=== PATIENT | female | born 1945 | race Caucasian/White ===

== ENCOUNTER 2019-09-13 07:44 | Inpatient (IN) | payer MEDICARE ==
[2019-09-10 16:48] LABS: MICROSCOPIC NOT IND
[2019-09-10 16:49] LABS: INTERNATIONAL NORMALIZED RATIO 0.98 (0.93-1.1); PROTHROMBIN TIME 10.3 Seconds (9.6-11.5)
[2019-09-10 16:52] LABS: CULTURE INDICATED? NO
[2019-09-10 16:55] LABS: ALANINE AMINOTRANSFERASE 32 U/L (12-78); ALBUMIN 3.5 g/dL (3.4-5.0); ANION GAP 8 mmol/L (5-15); CALCIUM 9.1 mg/dL (8.5-10.1); CHLORIDE 95 mmol/L (98-107); CREATININE 1.14 mg/dL (0.55-1.02); MEAN CORPUSCULAR HEMOGLOBIN 31.3 pg (27.0-34.8); MEAN CORPUSCULAR VOLUME 94.6 fL (80-100); MEAN PLATELET VOLUME 8.5 fL (7.4-10.4); PLATELET COUNT 441 x10^3/uL (130-400); RED BLOOD COUNT 4.39 x10^6/uL (3.82-5.3); RED CELL DISTRIBUTION WIDTH 14.3 % (9.6-15.2)
[2019-09-10 16:58] LABS: ALKALINE PHOSPHATASE 121 U/L (45-117); BILIRUBIN,TOTAL 0.3 mg/dL (0.2-1.0); TOTAL PROTEIN 7.6 g/dL (6.4-8.2)
[2019-09-10 17:14] LABS: BASOPHILS # (AUTO) 0.03 x10^3/uL (0-0.1); BASOPHILS % (AUTO) 0 % (0-1); EOSINOPHILS # (AUTO) 0.29 x10^3/uL (0-0.4); EOSINOPHILS % (AUTO) 2 % (1-7); LYMPHOCYTES # (AUTO) 1.66 x10^3/uL (1-3.4); LYMPHOCYTES % (AUTO) 10 % (22-44); MD SCAN; MONOCYTES # (AUTO) 1.17 x10^3/uL (0.2-0.8); MONOCYTES % (AUTO) 7 % (2-9); NEUTROPHILS # (AUTO) 13.23 x10^3/uL (1.8-6.8); NEUTROPHILS % (AUTO) 81 % (42-75)
[~2019-09-13] VITALS: Ht 156.2 cm; Wt 62.3 kg
[~2019-09-13 07:44] MED LIST: ACET1TAB64 PO; DOCU-180 PO; HYDR12.517 PO; LEVO100T5 PO; MAGN100T3 PO; MULT1TAB60 PO; NEBI20TA2 PO; OLME40TA12 PO; ONDA4TAB7 PO; SENN17.25 PO; Simethicone PO; TRAM50TA2 PO; TURM500C4 PO
[2019-09-13] MEDS ORDERED: LACTATED RINGERS 1,000 ML IV SCH (08:45)
[2019-09-13 08:46] VITALS: BP 105/68
[2019-09-13] MEDS ORDERED: MIDAZOLAM 1 MG/ML, 2ML ONE (09:35)
[2019-09-13] MEDS ORDERED: FENTANYL PF 250 MCG/5ML ONE (09:35)
[2019-09-13] MEDS ORDERED: PHENYLEPHRINE 10 MG/ML ONE (10:36)
[2019-09-13] MEDS ORDERED: METRONIDAZOLE PMX 500MG/100ML 100 ML ONE (11:34)
[2019-09-13] MEDS ORDERED: PIPERACILLIN/TAZO/PMX 3.375GM 0 ML ONE (11:34)
[2019-09-13] MEDS ORDERED: PIPERACILLIN/TAZO/PMX 3.375GM 50 ML ONE (11:35)
[2019-09-13] MEDS ORDERED: HYDROmorphone/PF 5 MG, BUPIVACAINE/PF 0.5%, 30ML 62.5 ML in SODIUM CHLORIDE 0.9% 182.5 ML EPIDCONT SCH (12:37)
[2019-09-13] MEDS ORDERED: HEPARIN 1,000 UNITS/ML, 10ML ONE (12:49)
[2019-09-13] MEDS ORDERED: ACETAMINOPHEN 325 MG TABLET PO PRN (13:00)
[2019-09-13] MEDS ORDERED: OXYcodone 5 MG/5 ML ORAL.SOL UDC PO PRN (13:00)
[2019-09-13] MEDS ORDERED: hydrALAzine 20 MG/ML, 1ML IV PRN (13:00)
[2019-09-13] MEDS ORDERED: HYDROmorphone 2 MG/ML, 1ML IVPush PRN (13:00)
[2019-09-13] MEDS ORDERED: DIAZEPAM 5 MG/ML, 2ML IVPush PRN (13:00)
[2019-09-13] MEDS ORDERED: NALOXONE 0.4 MG/ML, 1ML IVPush PRN (13:00)
[2019-09-13] MEDS ORDERED: MEPERIDINE/PF 25MG/0.5ML IVPush PRN (13:00)
[2019-09-13] MEDS ORDERED: KETOROLAC 30 MG/1 ML IVPush PRN (13:00)
[2019-09-13] MEDS ORDERED: DIPH,PERTUSS(ACELL),TET VAC/PF NC IM-VACC ONE (13:00)
[2019-09-13] MEDS ORDERED: KETOROLAC 30 MG/1 ML IV PRN (13:00)
[2019-09-13] MEDS ORDERED: ALBUTEROL SULFATE 2.5 MG/3 ML NPPB PRN (13:00)
[2019-09-13] MEDS ORDERED: PROMETHAZINE 25 MG/ML, 1ML IV PRN (13:00)
[2019-09-13] MEDS ORDERED: METOCLOPRAMIDE 5 MG/ML, 2ML IVPush PRN (13:00)
[2019-09-13] MEDS ORDERED: FLU VACC QS2019-20 36MOS UP/PF 0.5 ML IM-VACC ONE (13:00)
[2019-09-13] MEDS ORDERED: FENTANYL PF 100 MCG/2ML EPIDPUSH PRN (13:00)
[2019-09-13] MEDS ORDERED: EPHEDRINE 50 MG/ML, 1ML IVPush PRN (13:00)
[2019-09-13] MEDS ORDERED: PNEUMOC 13-VALENT VACC, PED 0.5 ML NC IM-VACC ONE (13:00)
[2019-09-13] MEDS ORDERED: FENTANYL PF 100 MCG/2ML IV PRN (13:00)
[2019-09-13] MEDS ORDERED: HAEMOPH B POLY CONJ-TET TOX/PF 10 MCG/0.5 ML INJ IM-VACC ONE (13:00)
[2019-09-13] MEDS ORDERED: DO NOT GIVE XX SCH ×2 (13:00)
[2019-09-13] MEDS ORDERED: LABETALOL 5MG/ML, 20ML IV PRN (13:00)
[2019-09-13] MEDS ORDERED: NALBUPHINE 10 MG/ML, 1ML IVPush PRN (13:00)
[2019-09-13] MEDS ORDERED: CALCIUM GLUCONATE 4.6 MEQ/10 ML ONE (14:00)
[2019-09-13] MEDS ORDERED: ALBUMIN HUMAN 25% 0 ML ONE (14:06)
[2019-09-13] MEDS ORDERED: ALBUMIN HUMAN 5% 500 ML ONE ×2 (14:06→15:55)
[2019-09-13] MEDS ORDERED: [UNRECOGNIZED DRUG - MIXTURE] IM-VACC ONE (14:30)
[2019-09-13] MEDS ORDERED: SUCCINYLCHOLINE 20 MG/ML, 10ML ONE (15:41)
[2019-09-13] MEDS ORDERED: ROCURONIUM 10MG/ML,5ML ONE (15:41)
[2019-09-13] MEDS ORDERED: NEOSTIGMINE 1 MG/ML, 10ML ONE (15:41)
[2019-09-13] MEDS ORDERED: PROPOFOL 10 MG/ML, 20ML ONE (15:41)
[2019-09-13] MEDS ORDERED: DEXAMETHASONE 4 MG/ML, 1ML ONE (15:41)
[2019-09-13] MEDS ORDERED: ONDANSETRON 2MG/ML, 2ML ONE (15:41)
[2019-09-13] MEDS ORDERED: GLYCOPYRROLATE 0.2MG/1ML, 5ML ONE (15:41)
[2019-09-13] MEDS ORDERED: CEFAZOLIN 1,000 MG ONE (15:41)
[2019-09-13] MEDS ORDERED: SUGAMMADEX 200 MG/2 ML IVPush ONE (15:42)
[2019-09-13] MEDS ORDERED: PROPOFOL 50 ML ONE (15:44)
[2019-09-13] MEDS ORDERED: FENTANYL PF 100 MCG/2ML ONE ×2 (15:50→15:59)
[2019-09-13] MEDS: HYDROmorphone/PF 5 MG, BUPIVACAINE/PF 0.5%, 30ML 62.5 ML in SODIUM CHLORIDE 0.9% 187 ML EPIDCONT SCH (17:57)
[2019-09-13] MEDS: D5%-0.45NACL+KCL 20MEQ 1,000 ML IV SCH (18:17)
[2019-09-13] MEDS: METRONIDAZOLE PMX 500MG/100ML 100 ML IV SCH (18:17)
[2019-09-13] MEDS: PIPERACILLIN/TAZO/PMX 3.375GM 50 ML IV SCH (18:17)
[2019-09-13] MEDS: ALBUMIN HUMAN 5% 500 ML IV SCH (18:20)
[2019-09-13] MEDS: KETOROLAC 30 MG/1 ML IVPush SCH ×2 (18:20→23:20)
[2019-09-13 18:25] LABS: BASOPHILS # (AUTO) 0.01 x10^3/uL (0-0.1); BASOPHILS % (AUTO) 0 % (0-1); EOSINOPHILS # (AUTO) 0.02 x10^3/uL (0-0.4); EOSINOPHILS % (AUTO) 0 % (1-7); LYMPHOCYTES # (AUTO) 0.57 x10^3/uL (1-3.4); LYMPHOCYTES % (AUTO) 7 % (22-44); MD NO; MEAN CORPUSCULAR HEMOGLOBIN 32.3 pg (27.0-34.8); MEAN CORPUSCULAR HGB CONC 33.8 g/dL (32.4-35.8); MEAN CORPUSCULAR VOLUME 95.5 fL (80-100); MEAN PLATELET VOLUME 8.8 fL (7.4-10.4); MONOCYTES # (AUTO) 0.27 x10^3/uL (0.2-0.8); MONOCYTES % (AUTO) 3 % (2-9); NEUTROPHILS # (AUTO) 7.71 x10^3/uL (1.8-6.8); NEUTROPHILS % (AUTO) 90 % (42-75); PLATELET COUNT 263 x10^3/uL (130-400); RED BLOOD COUNT 3.89 x10^6/uL (3.82-5.3); RED CELL DISTRIBUTION WIDTH 13.3 % (9.6-15.2)
[2019-09-13 18:33] LABS: ALANINE AMINOTRANSFERASE 75 U/L (12-78); ALBUMIN 2.6 g/dL (3.4-5.0); ANION GAP 10 mmol/L (5-15); CALCIUM 6.5 mg/dL (8.5-10.1); CHLORIDE 111 mmol/L (98-107); CREATININE 1.01 mg/dL (0.55-1.02)
[2019-09-13 18:34] LABS: ALKALINE PHOSPHATASE 27 U/L (45-117); BILIRUBIN,TOTAL 2.5 mg/dL (0.2-1.0); TOTAL PROTEIN 3.4 g/dL (6.4-8.2)
[2019-09-13] MEDS: PHENYLEPHRINE 20 MG in SODIUM CHLORIDE 0.9% 248 ML IV PRN (19:45)
[2019-09-13] MEDS: SODIUM CHLORIDE FLUSH 10ML SYR IVF SCH (21:05)
[2019-09-13] MEDS ORDERED: SODIUM CHLORIDE 0.9%, 500ML IVBOLUS PRN (21:30)
[2019-09-14] MEDS: PIPERACILLIN/TAZO/PMX 3.375GM 50 ML IV SCH ×4 (00:48→19:59)
[2019-09-14] MEDS: METRONIDAZOLE PMX 500MG/100ML 100 ML IV SCH ×4 (01:22→20:25)
[2019-09-14] MEDS: PHENYLEPHRINE 20 MG in SODIUM CHLORIDE 0.9% 248 ML IV PRN ×5 (02:50→19:51)
[2019-09-14] MEDS: D5%-0.45NACL+KCL 20MEQ 1,000 ML IV SCH ×3 (03:30→20:25)
[2019-09-14] MEDS: ALBUMIN HUMAN 5% 500 ML IV SCH ×2 (03:30→13:42)
[2019-09-14 04:00] VITALS: BP 105/53
[2019-09-14] MEDS: KETOROLAC 30 MG/1 ML IVPush SCH ×4 (04:43→23:30)
[2019-09-14 05:07] LABS: MEAN CORPUSCULAR HEMOGLOBIN 31.7 pg (27.0-34.8); MEAN CORPUSCULAR HGB CONC 33.5 g/dL (32.4-35.8); MEAN CORPUSCULAR VOLUME 94.4 fL (80-100); MEAN PLATELET VOLUME 9.1 fL (7.4-10.4); PLATELET COUNT 308 x10^3/uL (130-400); RED BLOOD COUNT 3.44 x10^6/uL (3.82-5.3); RED CELL DISTRIBUTION WIDTH 13.7 % (9.6-15.2)
[2019-09-14 05:17] LABS: ALBUMIN 2.6 g/dL (3.4-5.0); ANION GAP 10 mmol/L (5-15); CALCIUM 6.6 mg/dL (8.5-10.1); CHLORIDE 105 mmol/L (98-107); CREATININE 1.58 mg/dL (0.55-1.02)
[2019-09-14 06:24] LABS: MD YES
[2019-09-14 06:28] LABS: BAND#(MANUAL) 4.68 x10^3/uL; BANDS%(MANUAL) 26 % (0-7); LYMPHS% (MANUAL) 10 % (22-44); METAMYELOCYTES# (MANUAL) 0.18 x10^3/uL (0-0); METAMYELOCYTES% (MANUAL) 1 % (0-1); MONOS#(MANUAL) 0.36 x10^3/uL (0.3-2.7); MONOS% (MANUAL) 2 % (2-9); SEG#(MANUAL) 10.98 x10^3/uL (1.8-6.8); SEGS% (MANUAL) 61 % (42-75)
[2019-09-14 06:29] LABS: <PLATELET ESTIMATE> ADEQUATE; <PLT MORPHOLOGY> NORMAL PLT MORPH
[2019-09-14 06:40] LABS: <RBC MORPHOLOGY> NORMAL
[2019-09-14] MEDS: SODIUM CHLORIDE FLUSH 10ML SYR IVF SCH ×2 (17:31→21:21)
[2019-09-14] MEDS: FAMOTIDINE 20 MG/2 ML IVPush SCH (21:21)
[2019-09-14] MEDS: HYDROmorphone/PF 5 MG, BUPIVACAINE/PF 0.5%, 30ML 62.5 ML in SODIUM CHLORIDE 0.9% 187 ML EPIDCONT SCH (21:42)
[2019-09-14] MEDS ORDERED: PHENYLEPHRINE 80 MG in SODIUM CHLORIDE 0.9% 242 ML IV PRN (22:52)
[2019-09-15] MEDS: PIPERACILLIN/TAZO/PMX 3.375GM 50 ML IV SCH ×2 (02:28→08:44)
[2019-09-15] MEDS: METRONIDAZOLE PMX 500MG/100ML 100 ML IV SCH ×2 (03:17→08:44)
[2019-09-15 04:00] VITALS: BP 102/42
[2019-09-15] MEDS: KETOROLAC 30 MG/1 ML IVPush SCH (05:25)
[2019-09-15 05:52] LABS: MEAN CORPUSCULAR HEMOGLOBIN 32.2 pg (27.0-34.8); MEAN CORPUSCULAR HGB CONC 33.3 g/dL (32.4-35.8); MEAN CORPUSCULAR VOLUME 96.5 fL (80-100); MEAN PLATELET VOLUME 9.4 fL (7.4-10.4); PLATELET COUNT 244 x10^3/uL (130-400); RED BLOOD COUNT 2.84 x10^6/uL (3.82-5.3)
[2019-09-15 06:04] LABS: CALCIUM 6.5 mg/dL (8.5-10.1); CHLORIDE 111 mmol/L (98-107)
[2019-09-15 06:08] LABS: ANION GAP 8 mmol/L (5-15); CREATININE 1.54 mg/dL (0.55-1.02)
[2019-09-15 06:14] LABS: MD YES
[2019-09-15 06:16] LABS: BAND#(MANUAL) 5.19 x10^3/uL; BANDS%(MANUAL) 22 % (0-7); LYMPH#(MANUAL) 0.71 x10^3/uL (1-3.4); LYMPHS% (MANUAL) 3 % (22-44); MONOS#(MANUAL) 0.24 x10^3/uL (0.3-2.7); MONOS% (MANUAL) 1 % (2-9); SEG#(MANUAL) 17.46 x10^3/uL (1.8-6.8); SEGS% (MANUAL) 74 % (42-75)
[2019-09-15 06:20] LABS: <RBC MORPHOLOGY> NORMAL
[2019-09-15 06:21] LABS: <PLATELET ESTIMATE> ADEQUATE; <PLT MORPHOLOGY> NORMAL PLT MORPH
[2019-09-15] MEDS ORDERED: TPN PER PHARMACY MC SCH (08:30)
[2019-09-15] MEDS: SODIUM CHLORIDE FLUSH 10ML SYR IVF SCH ×2 (08:44→21:02)
[2019-09-15] MEDS: FAMOTIDINE 20 MG/2 ML IVPush SCH (08:44)
[2019-09-15] MEDS: LEVOTHYROXINE 100 MCG INJ IVPush SCH (08:44)
[2019-09-15] MEDS: ALBUMIN HUMAN 25% 100 ML IV SCH ×2 (08:46→16:26)
[2019-09-15] MEDS ORDERED: VANCOMYCIN PER PHARMACY MC PRN (09:30)
[2019-09-15] MEDS ORDERED: MENING VAC A,C,Y,W-135 DIP/PF 0.5 ML AGE<55 IM-VACC ONE (10:00)
[2019-09-15] MEDS: MEROPENEM 1 GM in SODIUM CHLORIDE 0.9% 100 ML IV SCH ×2 (10:30→17:34)
[2019-09-15] MEDS ORDERED: CALCIUM GLUCONATE 18.4 MEQ in SODIUM CHLORIDE 0.9% 100 ML IV ONE (11:00)
[2019-09-15] MEDS: MICAFUNGIN 100 MG in SODIUM CHLORIDE 0.9% 100 ML IV SCH (11:22)
[2019-09-15] MEDS ORDERED: VANCOMYCIN 1,500 MG in SODIUM CHLORIDE 0.9% 250 ML IV ONE (12:00)
[2019-09-15] MEDS ORDERED: DEXTROSE 10% 500 ML IV PRN (17:00)
[2019-09-15] MEDS ORDERED: SMOF TPN IV SCH (17:00)
[2019-09-15] MEDS ORDERED: DEXTROSE 70% IV SCH (17:00)
[2019-09-15] MEDS ORDERED: AMINO ACID 10% IV SCH (17:00)
[2019-09-15] MEDS ORDERED: [UNRECOGNIZED DRUG - OTHER] IV SCH (17:00)
[2019-09-15] MEDS ORDERED: FAT EMUL IV SCH (17:00)
[2019-09-15] MEDS ORDERED: FILTER, DISP 1.2 MICRON FOR TPN/PVN IV PRN (17:00)
[2019-09-15] MEDS ORDERED: DEXTROSE 50%, 50ML SYRINGE IVPush PRN (17:00)
[2019-09-15] MEDS ORDERED: LACTATED RINGERS 1,000 ML IV SCH (18:30)
[2019-09-15] MEDS: LORazepam 2 MG/ML, 1ML IVPush PRN ×2 (18:36→22:53)
[2019-09-15] MEDS: LACTATED RINGERS 1,000 ML IV SCH (18:48)
[2019-09-15] MEDS ORDERED: FAMOTIDINE 20 MG/2 ML IVPush SCH (21:00)
[2019-09-15] MEDS: INSULIN REGULAR MEDIUM DOSE Q6H X 48HRS SQ-INSULIN SCH (21:04)
[2019-09-15] MEDS ORDERED: LORazepam 2 MG/ML, 1ML IVPush PRN (23:00)
[2019-09-16] MEDS: ALBUMIN HUMAN 25% 100 ML IV SCH (00:36)
[2019-09-16] MEDS: MEROPENEM 1 GM in SODIUM CHLORIDE 0.9% 100 ML IV SCH ×2 (02:03→16:29)
[2019-09-16] MEDS: INSULIN REGULAR MEDIUM DOSE Q6H X 48HRS SQ-INSULIN SCH ×3 (03:00→19:22)
[2019-09-16 03:18] LABS: MEAN CORPUSCULAR HEMOGLOBIN 31.6 pg (27.0-34.8); MEAN CORPUSCULAR HGB CONC 32.7 g/dL (32.4-35.8); MEAN CORPUSCULAR VOLUME 96.7 fL (80-100); PLATELET COUNT 240 x10^3/uL (130-400); RED BLOOD COUNT 2.61 x10^6/uL (3.82-5.3); RED CELL DISTRIBUTION WIDTH 14.2 % (9.6-15.2)
[2019-09-16 03:28] LABS: ALBUMIN 3.4 g/dL (3.4-5.0); ANION GAP 5 mmol/L (5-15); CALCIUM 7.8 mg/dL (8.5-10.1); CHLORIDE 116 mmol/L (98-107); TRIGLYCERIDES 48 mg/dL (50-200)
[2019-09-16 03:33] LABS: ALANINE AMINOTRANSFERASE 16 U/L (12-78); ALKALINE PHOSPHATASE 42 U/L (45-117); BILIRUBIN,TOTAL 0.5 mg/dL (0.2-1.0); CREATININE 1.56 mg/dL (0.55-1.02); PREALBUMIN 5.9 mg/dL (20.0-40.0); TOTAL PROTEIN 5.4 g/dL (6.4-8.2); VANCOMYCIN,RANDOM 15.2 mcg/mL
[2019-09-16 03:40] LABS: MD YES
[2019-09-16 03:41] LABS: BAND#(MANUAL) 0.48 x10^3/uL; BANDS%(MANUAL) 2 % (0-7); MONOS#(MANUAL) 0.24 x10^3/uL (0.3-2.7); MONOS% (MANUAL) 1 % (2-9); SEG#(MANUAL) 23.38 x10^3/uL (1.8-6.8); SEGS% (MANUAL) 97 % (42-75)
[2019-09-16 03:44] LABS: CRENATED 1+
[2019-09-16 03:45] LABS: <PLATELET ESTIMATE> ADEQUATE; <PLT MORPHOLOGY> NORMAL PLT MORPH
[2019-09-16] MEDS: LORazepam 2 MG/ML, 1ML IVPush PRN (03:45)
[2019-09-16 04:38] VITALS: BP 151/77
[2019-09-16] MEDS: LACTATED RINGERS 1,000 ML IV SCH (04:55)
[2019-09-16] MEDS ORDERED: LABETALOL 5MG/ML, 20ML ONE (06:38)
[2019-09-16] MEDS ORDERED: LABETALOL 5 MG/ML SYR. (IV ONLY) IVPush PRN (07:00)
[2019-09-16] MEDS ORDERED: VANCOMYCIN 1,500 MG in SODIUM CHLORIDE 0.9% 250 ML IV ONE (08:00)
[2019-09-16] MEDS: hydrALAzine 20 MG/ML, 1ML IV PRN ×3 (08:45→19:04)
[2019-09-16] MEDS: FUROSEMIDE 40 MG/4 ML IV SCH ×2 (08:46→20:29)
[2019-09-16] MEDS ORDERED: FLUMAZENIL 0.1 MG/1 ML, 5ML IVPush ONE ×3 (09:00→11:00)
[2019-09-16] MEDS ORDERED: MAGNESIUM SULFATE PMX 2GM/50ML 50 ML IVPB ONE (09:00)
[2019-09-16] MEDS ORDERED: FLUMAZENIL 0.1 MG/1 ML, 5ML ONE (09:00)
[2019-09-16] MEDS: LEVOTHYROXINE 100 MCG INJ IVPush SCH (10:23)
[2019-09-16] MEDS: SODIUM CHLORIDE FLUSH 10ML SYR IVF SCH ×2 (10:23→20:29)
[2019-09-16] MEDS: MICAFUNGIN 100 MG in SODIUM CHLORIDE 0.9% 100 ML IV SCH (12:00)
[2019-09-16] MEDS ORDERED: CALCIUM GLUCONATE 9.2 MEQ in SODIUM CHLORIDE 0.9% 100 ML IV ONE (14:00)
[2019-09-16] MEDS: MORPHINE SULFATE 4 MG/ML, 1ML IVPush PRN ×2 (16:01→18:04)
[2019-09-16] MEDS ORDERED: FILTER, DISP 1.2 MICRON FOR TPN/PVN IV PRN (17:00)
[2019-09-16] MEDS ORDERED: DEXTROSE 70% IV SCH (17:00)
[2019-09-16] MEDS ORDERED: SMOF TPN IV SCH (17:00)
[2019-09-16] MEDS ORDERED: [UNRECOGNIZED DRUG - OTHER] IV SCH (17:00)
[2019-09-16] MEDS ORDERED: AMINO ACID 10% IV SCH (17:00)
[2019-09-16] MEDS ORDERED: FAT EMUL IV SCH (17:00)
[2019-09-16] MEDS ORDERED: PROPOFOL 100 ML IV PRN (22:11)
[2019-09-16] MEDS ORDERED: PHARMACY MAY ADJ FOR RENAL FX MC SCH (22:30)
[2019-09-16] MEDS ORDERED: SENNA/DOCUSATE TABLET NG PRN (22:30)
[2019-09-16] MEDS ORDERED: SENNA 176 MG/5 ML ORAL SOL NG PRN (22:30)
[2019-09-16] MEDS ORDERED: DEXTROSE 50%, 50ML SYRINGE IVPush PRN (22:30)
[2019-09-16] MEDS ORDERED: GLUCAGON 1 MG IM PRN (22:30)
[2019-09-16] MEDS ORDERED: BISACODYL 10 MG SUPP PR PRN (22:30)
[2019-09-16] MEDS ORDERED: DEXTROSE 4 GM TAB.CHEW PO PRN (22:30)
[2019-09-16] MEDS ORDERED: LACTULOSE 20 GM/30 ML UDC NG PRN (22:30)
[2019-09-16] MEDS: ALBUTEROL SULFATE 2.5 MG/3 ML INLINE SCH (22:34)
[2019-09-17] MEDS ORDERED: FUROSEMIDE 40 MG/4 ML IV ONE (00:30)
[2019-09-17] MEDS: INSULIN REGULAR MEDIUM DOSE Q6H X 48HRS SQ-INSULIN SCH ×4 (01:09→18:41)
[2019-09-17] MEDS: ALBUTEROL SULFATE 2.5 MG/3 ML INLINE SCH ×6 (02:58→21:40)
[2019-09-17 04:00] VITALS: BP 113/61
[2019-09-17] MEDS: MEROPENEM 1 GM in SODIUM CHLORIDE 0.9% 100 ML IV SCH ×2 (04:06→15:38)
[2019-09-17] MEDS: DEXMEDETOMIDINE 200 MCG in SODIUM CHLORIDE 0.9% 48 ML IV PRN ×5 (04:09→21:48)
[2019-09-17 04:43] LABS: MEAN CORPUSCULAR HEMOGLOBIN 31.8 pg (27.0-34.8); MEAN CORPUSCULAR HGB CONC 32.9 g/dL (32.4-35.8); MEAN CORPUSCULAR VOLUME 96.7 fL (80-100); PLATELET COUNT 245 x10^3/uL (130-400); RED BLOOD COUNT 2.65 x10^6/uL (3.82-5.3); RED CELL DISTRIBUTION WIDTH 14.3 % (9.6-15.2)
[2019-09-17 04:56] LABS: ANION GAP 6 mmol/L (5-15); CALCIUM 8.9 mg/dL (8.5-10.1); CHLORIDE 110 mmol/L (98-107); CREATININE 1.32 mg/dL (0.55-1.02)
[2019-09-17 04:59] LABS: VANCOMYCIN,RANDOM 20.8 mcg/mL
[2019-09-17 05:42] LABS: MD YES
[2019-09-17 05:43] LABS: EOS#(MANUAL) 0.24 x10^3/uL (0.0-0.4); EOS% (MANUAL) 1 % (1-7)
[2019-09-17 05:44] LABS: BAND#(MANUAL) 0.48 x10^3/uL; BANDS%(MANUAL) 2 % (0-7); LYMPH#(MANUAL) 0.71 x10^3/uL (1-3.4); LYMPHS% (MANUAL) 3 % (22-44); MONOS#(MANUAL) 0.71 x10^3/uL (0.3-2.7); MONOS% (MANUAL) 3 % (2-9); SEG#(MANUAL) 21.66 x10^3/uL (1.8-6.8); SEGS% (MANUAL) 91 % (42-75)
[2019-09-17 05:45] LABS: <PLATELET ESTIMATE> ADEQUATE; <PLT MORPHOLOGY> NORMAL PLT MORPH; <RBC MORPHOLOGY> NORMAL
[2019-09-17] MEDS ORDERED: NOREPINEPHRINE 4 MG in SODIUM CHLORIDE 0.9% 246 ML IV PRN (08:00)
[2019-09-17] MEDS ORDERED: POTASSIUM PHOSPHATE IV ONE (08:30)
[2019-09-17] MEDS ORDERED: SODIUM CHLORIDE 0.9% IV ONE (08:30)
[2019-09-17] MEDS: VANCOMYCIN 1,500 MG in SODIUM CHLORIDE 0.9% 250 ML IV SCH (09:00)
[2019-09-17] MEDS ORDERED: FENTANYL PF 2,500 MCG in SODIUM CHLORIDE 0.9% 200 ML IV PRN (09:00)
[2019-09-17] MEDS ORDERED: FUROSEMIDE 40 MG/4 ML IV SCH (09:00)
[2019-09-17] MEDS: LEVOTHYROXINE 100 MCG INJ IVPush SCH (09:04)
[2019-09-17] MEDS: FUROSEMIDE 40 MG/4 ML IV SCH ×2 (09:04→20:30)
[2019-09-17] MEDS: SODIUM CHLORIDE FLUSH 10ML SYR IVF SCH ×2 (09:04→20:30)
[2019-09-17] MEDS: MICAFUNGIN 100 MG in SODIUM CHLORIDE 0.9% 100 ML IV SCH (11:00)
[2019-09-17] MEDS: FILTER, DISP 1.2 MICRON FOR TPN/PVN IV PRN (16:43)
[2019-09-17] MEDS ORDERED: [UNRECOGNIZED DRUG - OTHER] IV SCH (17:00)
[2019-09-17] MEDS ORDERED: FAT EMUL IV SCH (17:00)
[2019-09-17] MEDS ORDERED: SMOF TPN IV SCH (17:00)
[2019-09-17] MEDS ORDERED: AMINO ACID 10% IV SCH (17:00)
[2019-09-17] MEDS ORDERED: DEXTROSE 70% IV SCH (17:00)
[2019-09-18] MEDS: INSULIN REGULAR MEDIUM DOSE Q6H X 48HRS SQ-INSULIN SCH ×4 (01:00→19:16)
[2019-09-18] MEDS: ALBUTEROL SULFATE 2.5 MG/3 ML INLINE SCH ×6 (02:30→22:30)
[2019-09-18 04:00] VITALS: BP 126/61
[2019-09-18] MEDS: DEXMEDETOMIDINE 200 MCG in SODIUM CHLORIDE 0.9% 48 ML IV PRN (04:00)
[2019-09-18] MEDS: MEROPENEM 1 GM in SODIUM CHLORIDE 0.9% 100 ML IV SCH ×2 (04:01→15:37)
[2019-09-18 05:01] LABS: MEAN CORPUSCULAR HEMOGLOBIN 31.7 pg (27.0-34.8); MEAN CORPUSCULAR HGB CONC 32.8 g/dL (32.4-35.8); MEAN CORPUSCULAR VOLUME 96.5 fL (80-100); MEAN PLATELET VOLUME 10.1 fL (7.4-10.4); PLATELET COUNT 292 x10^3/uL (130-400); RED BLOOD COUNT 2.64 x10^6/uL (3.82-5.3); RED CELL DISTRIBUTION WIDTH 14.5 % (9.6-15.2)
[2019-09-18 05:05] LABS: ANION GAP 6 mmol/L (5-15); CALCIUM 8.3 mg/dL (8.5-10.1); CHLORIDE 109 mmol/L (98-107)
[2019-09-18 05:11] LABS: CREATININE 0.99 mg/dL (0.55-1.02); TROPONIN I 0.454 ng/mL (0.000-0.045)
[2019-09-18 05:18] LABS: MD YES
[2019-09-18 05:20] LABS: ANISOCYTOSIS 1+; EOS% (MANUAL) 5 % (1-7); LYMPH#(MANUAL) 1.25 x10^3/uL (1-3.4); LYMPHS% (MANUAL) 7 % (22-44); METAMYELOCYTES# (MANUAL) 0.18 x10^3/uL (0-0); METAMYELOCYTES% (MANUAL) 1 % (0-1); MONOS#(MANUAL) 1.97 x10^3/uL (0.3-2.7); MONOS% (MANUAL) 11 % (2-9); NRBC % (MANUAL) 1 % (0-1); SEGS% (MANUAL) 76 % (42-75)
[2019-09-18 05:22] LABS: <PLATELET ESTIMATE> ADEQUATE; LARGE PLATELETS 1+; POLYCHROMASIA 1+
[2019-09-18] MEDS: VANCOMYCIN 1,500 MG in SODIUM CHLORIDE 0.9% 250 ML IV SCH (08:41)
[2019-09-18] MEDS: LEVOTHYROXINE 100 MCG INJ IVPush SCH (08:41)
[2019-09-18] MEDS: SODIUM CHLORIDE FLUSH 10ML SYR IVF SCH ×2 (08:41→19:06)
[2019-09-18] MEDS: FUROSEMIDE 20 MG/2 ML IV SCH ×2 (08:43→19:16)
[2019-09-18] MEDS: DEXMEDETOMIDINE 1,000 MCG in SODIUM CHLORIDE 0.9% 240 ML IV PRN (10:38)
[2019-09-18] MEDS: MICAFUNGIN 100 MG in SODIUM CHLORIDE 0.9% 100 ML IV SCH (10:38)
[2019-09-18 11:30] LABS: TROPONIN I 0.402 ng/mL (0.000-0.045)
[2019-09-18] MEDS: FILTER, DISP 1.2 MICRON FOR TPN/PVN IV PRN (16:50)
[2019-09-18] MEDS ORDERED: SMOF TPN IV SCH (17:00)
[2019-09-18] MEDS ORDERED: DEXTROSE 70% IV SCH (17:00)
[2019-09-18] MEDS ORDERED: FAT EMUL IV SCH (17:00)
[2019-09-18] MEDS ORDERED: [UNRECOGNIZED DRUG - OTHER] IV SCH (17:00)
[2019-09-18] MEDS ORDERED: AMINO ACID 10% IV SCH (17:00)
[2019-09-18] MEDS: LIDOCAINE-MPF 1%, 2ML ENDO PRN (18:46)
[2019-09-18] MEDS: FENTANYL PF 2,500 MCG in SODIUM CHLORIDE 0.9% 200 ML IV PRN (19:50)
[2019-09-18] MEDS ORDERED: ALBUMIN HUMAN 25% 200 ML ONE (21:40)
[2019-09-18] MEDS ORDERED: ALBUMIN HUMAN 25% 100 ML IV ONE ×2 (22:00)
[2019-09-19] MEDS: ALBUTEROL SULFATE 2.5 MG/3 ML INLINE SCH ×6 (02:20→23:00)
[2019-09-19] MEDS: MEROPENEM 1 GM in SODIUM CHLORIDE 0.9% 100 ML IV SCH ×2 (04:06→15:54)
[2019-09-19 04:34] LABS: MEAN CORPUSCULAR HEMOGLOBIN 31.8 pg (27.0-34.8); MEAN CORPUSCULAR HGB CONC 32.8 g/dL (32.4-35.8); MEAN CORPUSCULAR VOLUME 97.1 fL (80-100); MEAN PLATELET VOLUME 9.9 fL (7.4-10.4); PLATELET COUNT 328 x10^3/uL (130-400); RED BLOOD COUNT 2.46 x10^6/uL (3.82-5.3); RED CELL DISTRIBUTION WIDTH 14.9 % (9.6-15.2)
[2019-09-19 04:46] LABS: MD YES
[2019-09-19 04:47] LABS: ANION GAP 5 mmol/L (5-15); CALCIUM 8.2 mg/dL (8.5-10.1); CHLORIDE 107 mmol/L (98-107); CREATININE 0.89 mg/dL (0.55-1.02); TRIGLYCERIDES 68 mg/dL (50-200)
[2019-09-19 04:48] LABS: ANISOCYTOSIS 1+; BAND#(MANUAL) 0.17 x10^3/uL; BANDS%(MANUAL) 1 % (0-7); EOS% (MANUAL) 3 % (1-7); LYMPH#(MANUAL) 1.51 x10^3/uL (1-3.4); LYMPHS% (MANUAL) 9 % (22-44); METAMYELOCYTES# (MANUAL) 0.17 x10^3/uL (0-0); METAMYELOCYTES% (MANUAL) 1 % (0-1); MONOS#(MANUAL) 1.51 x10^3/uL (0.3-2.7); MONOS% (MANUAL) 9 % (2-9); MYELOCYTES# (MANUAL) 0.67 x10^3/uL (0-0); MYELOCYTES% (MANUAL) 4 % (0-0); NRBC % (MANUAL) 1 % (0-1); POLYCHROMASIA 1+; SEG#(MANUAL) 12.26 x10^3/uL (1.8-6.8); SEGS% (MANUAL) 73 % (42-75)
[2019-09-19 04:49] LABS: <PLATELET ESTIMATE> ADEQUATE; LARGE PLATELETS 1+
[2019-09-19] MEDS: LIDOCAINE-MPF 1%, 2ML ENDO PRN (05:30)
[2019-09-19] MEDS: DEXMEDETOMIDINE 1,000 MCG in SODIUM CHLORIDE 0.9% 240 ML IV PRN ×2 (06:27→21:52)
[2019-09-19] MEDS: VANCOMYCIN 1,500 MG in SODIUM CHLORIDE 0.9% 250 ML IV SCH (08:05)
[2019-09-19] MEDS: LEVOTHYROXINE 100 MCG INJ IVPush SCH (08:05)
[2019-09-19] MEDS: FUROSEMIDE 20 MG/2 ML IV SCH ×2 (08:05→21:50)
[2019-09-19] MEDS: INSULIN REGULAR MEDIUM DOSE QDAY SQ-INSULIN SCH (08:06)
[2019-09-19] MEDS: SODIUM CHLORIDE FLUSH 10ML SYR IVF SCH ×2 (08:06→21:50)
[2019-09-19] MEDS ORDERED: FENTANYL PF 100 MCG/2ML ONE (09:33)
[2019-09-19] MEDS: hydrALAzine 20 MG/ML, 1ML IV PRN (11:08)
[2019-09-19] MEDS: MICAFUNGIN 100 MG in SODIUM CHLORIDE 0.9% 100 ML IV SCH (11:09)
[2019-09-19] MEDS ORDERED: ALBUMIN HUMAN 25% 100 ML IV ONE (12:00)
[2019-09-19] MEDS: FILTER, DISP 1.2 MICRON FOR TPN/PVN IV PRN (16:35)
[2019-09-19] MEDS ORDERED: AMINO ACID 10% IV SCH (17:00)
[2019-09-19] MEDS ORDERED: SMOF TPN IV SCH (17:00)
[2019-09-19] MEDS ORDERED: DEXTROSE 70% IV SCH (17:00)
[2019-09-19] MEDS ORDERED: FAT EMUL IV SCH (17:00)
[2019-09-19] MEDS ORDERED: [UNRECOGNIZED DRUG - OTHER] IV SCH (17:00)
[2019-09-19] MEDS: HALOPERIDOL 5 MG/ML IV PRN (19:18)
[2019-09-20] MEDS: ALBUTEROL SULFATE 2.5 MG/3 ML INLINE SCH ×6 (02:30→22:09)
[2019-09-20] MEDS: MEROPENEM 1 GM in SODIUM CHLORIDE 0.9% 100 ML IV SCH ×2 (04:41→16:16)
[2019-09-20 05:03] LABS: MEAN CORPUSCULAR HEMOGLOBIN 32.1 pg (27.0-34.8); MEAN CORPUSCULAR HGB CONC 33.4 g/dL (32.4-35.8); MEAN PLATELET VOLUME 9.3 fL (7.4-10.4); PLATELET COUNT 405 x10^3/uL (130-400); RED BLOOD COUNT 2.53 x10^6/uL (3.82-5.3); RED CELL DISTRIBUTION WIDTH 14.6 % (9.6-15.2)
[2019-09-20 05:08] LABS: ALANINE AMINOTRANSFERASE 20 U/L (12-78); ANION GAP 6 mmol/L (5-15); CALCIUM 8.8 mg/dL (8.5-10.1); CHLORIDE 107 mmol/L (98-107); CREATININE 0.99 mg/dL (0.55-1.02)
[2019-09-20 05:12] LABS: ALKALINE PHOSPHATASE 91 U/L (45-117); BILIRUBIN,TOTAL 0.8 mg/dL (0.2-1.0); PREALBUMIN 14.2 mg/dL (20.0-40.0); TOTAL PROTEIN 5.8 g/dL (6.4-8.2)
[2019-09-20 05:45] LABS: MD YES
[2019-09-20 05:46] LABS: BAND#(MANUAL) 0.37 x10^3/uL; BANDS%(MANUAL) 2 % (0-7); LYMPHS% (MANUAL) 6 % (22-44); METAMYELOCYTES# (MANUAL) 0.37 x10^3/uL (0-0); METAMYELOCYTES% (MANUAL) 2 % (0-1); NRBC % (MANUAL) 1 % (0-1)
[2019-09-20 05:47] LABS: EOS#(MANUAL) 0.37 x10^3/uL (0.0-0.4); EOS% (MANUAL) 2 % (1-7); MONOS#(MANUAL) 2.38 x10^3/uL (0.3-2.7); MONOS% (MANUAL) 13 % (2-9); SEG#(MANUAL) 13.73 x10^3/uL (1.8-6.8); SEGS% (MANUAL) 75 % (42-75)
[2019-09-20 05:48] LABS: <PLATELET ESTIMATE> ADEQUATE; ANISOCYTOSIS 1+; LARGE PLATELETS 1+; POLYCHROMASIA 1+
[2019-09-20] MEDS: FENTANYL PF 2,500 MCG in SODIUM CHLORIDE 0.9% 200 ML IV PRN (06:02)
[2019-09-20] MEDS: VANCOMYCIN 1,500 MG in SODIUM CHLORIDE 0.9% 250 ML IV SCH (08:03)
[2019-09-20] MEDS: DEXMEDETOMIDINE 1,000 MCG in SODIUM CHLORIDE 0.9% 240 ML IV PRN ×2 (08:04→17:36)
[2019-09-20] MEDS: SODIUM CHLORIDE FLUSH 10ML SYR IVF SCH ×2 (08:37→21:27)
[2019-09-20] MEDS: LORazepam 2 MG/ML, 1ML IV PRN ×2 (08:37→17:36)
[2019-09-20] MEDS: FUROSEMIDE 20 MG/2 ML IV SCH ×2 (10:10→21:27)
[2019-09-20] MEDS: LEVOTHYROXINE 100 MCG INJ IVPush SCH (10:11)
[2019-09-20] MEDS: INSULIN REGULAR MEDIUM DOSE QDAY SQ-INSULIN SCH (10:13)
[2019-09-20] MEDS: MICAFUNGIN 100 MG in SODIUM CHLORIDE 0.9% 100 ML IV SCH (11:01)
[2019-09-20] MEDS ORDERED: AMINO ACID 10% IV SCH (17:00)
[2019-09-20] MEDS ORDERED: FAT EMUL IV SCH (17:00)
[2019-09-20] MEDS ORDERED: [UNRECOGNIZED DRUG - OTHER] IV SCH (17:00)
[2019-09-20] MEDS ORDERED: SMOF TPN IV SCH (17:00)
[2019-09-20] MEDS ORDERED: DEXTROSE 70% IV SCH (17:00)
[2019-09-21] MEDS: LORazepam 2 MG/ML, 1ML IV PRN ×3 (01:36→22:50)
[2019-09-21] MEDS: ALBUTEROL SULFATE 2.5 MG/3 ML INLINE SCH ×2 (02:09→07:20)
[2019-09-21 04:21] LABS: MEAN CORPUSCULAR HEMOGLOBIN 31.6 pg (27.0-34.8); MEAN CORPUSCULAR HGB CONC 32.9 g/dL (32.4-35.8); MEAN CORPUSCULAR VOLUME 96.1 fL (80-100); MEAN PLATELET VOLUME 9.5 fL (7.4-10.4); PLATELET COUNT 475 x10^3/uL (130-400); RED BLOOD COUNT 2.53 x10^6/uL (3.82-5.3); RED CELL DISTRIBUTION WIDTH 14.5 % (9.6-15.2)
[2019-09-21 04:28] LABS: ANION GAP 7 mmol/L (5-15); CALCIUM 8.8 mg/dL (8.5-10.1); CHLORIDE 105 mmol/L (98-107); CREATININE 0.92 mg/dL (0.55-1.02)
[2019-09-21] MEDS: MEROPENEM 1 GM in SODIUM CHLORIDE 0.9% 100 ML IV SCH ×2 (04:37→16:13)
[2019-09-21] MEDS: DEXMEDETOMIDINE 1,000 MCG in SODIUM CHLORIDE 0.9% 240 ML IV PRN ×2 (05:21→19:08)
[2019-09-21 05:34] LABS: MD YES
[2019-09-21 05:36] LABS: ANISOCYTOSIS 1+; BAND#(MANUAL) 0.19 x10^3/uL; BANDS%(MANUAL) 1 % (0-7); EOS#(MANUAL) 0.19 x10^3/uL (0.0-0.4); EOS% (MANUAL) 1 % (1-7); LYMPH#(MANUAL) 1.16 x10^3/uL (1-3.4); LYMPHS% (MANUAL) 6 % (22-44); MONOS#(MANUAL) 0.97 x10^3/uL (0.3-2.7); MONOS% (MANUAL) 5 % (2-9); MYELOCYTES# (MANUAL) 0.19 x10^3/uL (0-0); MYELOCYTES% (MANUAL) 1 % (0-0); NRBC % (MANUAL) 3 % (0-1); POLYCHROMASIA 1+; SEG#(MANUAL) 16.68 x10^3/uL (1.8-6.8); SEGS% (MANUAL) 86 % (42-75)
[2019-09-21 05:37] LABS: <PLATELET ESTIMATE> INCREASED; LARGE PLATELETS 1+
[2019-09-21] MEDS: INSULIN REGULAR MEDIUM DOSE QDAY SQ-INSULIN SCH (07:00)
[2019-09-21] MEDS: SODIUM CHLORIDE FLUSH 10ML SYR IVF SCH ×2 (08:22→21:33)
[2019-09-21] MEDS: FUROSEMIDE 20 MG/2 ML IV SCH ×2 (08:22→20:47)
[2019-09-21] MEDS: LEVOTHYROXINE 100 MCG INJ IVPush SCH (08:22)
[2019-09-21] MEDS: MICAFUNGIN 100 MG in SODIUM CHLORIDE 0.9% 100 ML IV SCH (11:14)
[2019-09-21] MEDS: MORPHINE SULFATE 4 MG/ML, 1ML IVPush PRN ×2 (12:03→19:34)
[2019-09-21] MEDS: HALOPERIDOL 5 MG/ML IV PRN (13:15)
[2019-09-21] MEDS: FENTANYL PF 100 MCG/2ML IVPush PRN ×2 (13:40→15:44)
[2019-09-21] MEDS: FILTER, DISP 1.2 MICRON FOR TPN/PVN IV PRN (16:15)
[2019-09-21] MEDS ORDERED: ALBUTEROL/IPRATROPIUM 2.5MG/0.5MG, 3 ML NPPB PRN (16:30)
[2019-09-21] MEDS ORDERED: FAT EMUL IV SCH (17:00)
[2019-09-21] MEDS ORDERED: DEXTROSE 70% IV SCH (17:00)
[2019-09-21] MEDS ORDERED: AMINO ACID 10% IV SCH (17:00)
[2019-09-21] MEDS ORDERED: [UNRECOGNIZED DRUG - OTHER] IV SCH (17:00)
[2019-09-21] MEDS ORDERED: SMOF TPN IV SCH (17:00)
[2019-09-21] MEDS: KETOROLAC 30 MG/1 ML IVPush SCH (20:47)
[2019-09-21] MEDS: ENOXAPARIN 40 MG/0.4 ML SQ SCH (20:47)
[2019-09-22] MEDS: MORPHINE SULFATE 4 MG/ML, 1ML IVPush PRN ×3 (00:23→21:20)
[2019-09-22] MEDS: KETOROLAC 30 MG/1 ML IVPush SCH ×4 (02:04→20:22)
[2019-09-22] MEDS: hydrALAzine 20 MG/ML, 1ML IV PRN ×3 (02:04→14:45)
[2019-09-22] MEDS: LORazepam 2 MG/ML, 1ML IV PRN ×2 (02:42→20:22)
[2019-09-22] MEDS: MEROPENEM 1 GM in SODIUM CHLORIDE 0.9% 100 ML IV SCH ×2 (04:06→16:39)
[2019-09-22 04:30] LABS: MEAN CORPUSCULAR HGB CONC 34.1 g/dL (32.4-35.8); MEAN CORPUSCULAR VOLUME 93.8 fL (80-100); MEAN PLATELET VOLUME 9.4 fL (7.4-10.4); PLATELET COUNT 542 x10^3/uL (130-400); RED BLOOD COUNT 2.71 x10^6/uL (3.82-5.3); RED CELL DISTRIBUTION WIDTH 14.3 % (9.6-15.2)
[2019-09-22 04:34] LABS: ANION GAP 7 mmol/L (5-15); CALCIUM 9.2 mg/dL (8.5-10.1); CHLORIDE 107 mmol/L (98-107); CREATININE 0.92 mg/dL (0.55-1.02); TRIGLYCERIDES 124 mg/dL (50-200)
[2019-09-22 04:37] LABS: VANCOMYCIN,RANDOM 14.8 mcg/mL
[2019-09-22 05:09] LABS: MD YES
[2019-09-22 05:11] LABS: BASOS#(MANUAL) 0.25 x10^3/uL (0-0.1); BASOS% (MANUAL) 1 % (0-1); EOS% (MANUAL) 2 % (1-7); LYMPHS% (MANUAL) 6 % (22-44); MONOS% (MANUAL) 10 % (2-9); SEG#(MANUAL) 20.25 x10^3/uL (1.8-6.8); SEGS% (MANUAL) 81 % (42-75)
[2019-09-22 05:12] LABS: <PLATELET ESTIMATE> INCREASED; ANISOCYTOSIS 1+; HYPOCHROMIA 1+; LARGE PLATELETS 1+
[2019-09-22] MEDS: INSULIN REGULAR MEDIUM DOSE QDAY SQ-INSULIN SCH (07:00)
[2019-09-22 08:20] LABS: MICROSCOPIC INDICATED
[2019-09-22 08:37] LABS: CULTURE INDICATED? YES
[2019-09-22] MEDS: FUROSEMIDE 20 MG/2 ML IV SCH ×2 (09:02→20:21)
[2019-09-22] MEDS: SODIUM CHLORIDE FLUSH 10ML SYR IVF SCH ×2 (09:05→20:22)
[2019-09-22] MEDS: LEVOTHYROXINE 100 MCG INJ IVPush SCH (09:05)
[2019-09-22] MEDS: VANCOMYCIN 1,500 MG in SODIUM CHLORIDE 0.9% 250 ML IV SCH (10:12)
[2019-09-22] MEDS: MICAFUNGIN 100 MG in SODIUM CHLORIDE 0.9% 100 ML IV SCH (12:11)
[2019-09-22] MEDS ORDERED: PHARMACOKINETIC MONITORING MC PRN (13:00)
[2019-09-22] MEDS: FILTER, DISP 1.2 MICRON FOR TPN/PVN IV PRN (16:42)
[2019-09-22] MEDS ORDERED: FAT EMUL IV SCH (17:00)
[2019-09-22] MEDS ORDERED: DEXTROSE 70% IV SCH (17:00)
[2019-09-22] MEDS ORDERED: AMINO ACID 10% IV SCH (17:00)
[2019-09-22] MEDS ORDERED: SMOF TPN IV SCH (17:00)
[2019-09-22] MEDS ORDERED: [UNRECOGNIZED DRUG - OTHER] IV SCH (17:00)
[2019-09-22] MEDS: METOPROLOL TARTRATE 25 MG TABLET PO SCH (20:00)
[2019-09-22] MEDS: ENOXAPARIN 40 MG/0.4 ML SQ SCH (20:21)
[2019-09-23] VITALS (9 sets, daily range): BP systolic 147–183; BP diastolic 68–92
[2019-09-23] MEDS: METOPROLOL TARTRATE 25 MG TABLET PO SCH ×3 (00:54→22:35)
[2019-09-23] MEDS: KETOROLAC 30 MG/1 ML IVPush SCH (02:24)
[2019-09-23] MEDS: MEROPENEM 1 GM in SODIUM CHLORIDE 0.9% 100 ML IV SCH ×2 (04:18→16:36)
[2019-09-23 04:53] LABS: CHLORIDE 110 mmol/L (98-107)
[2019-09-23 04:56] LABS: ANION GAP 5 mmol/L (5-15); CREATININE 0.94 mg/dL (0.55-1.02)
[2019-09-23 05:12] LABS: MEAN CORPUSCULAR HEMOGLOBIN 30.5 pg (27.0-34.8); MEAN CORPUSCULAR HGB CONC 32.3 g/dL (32.4-35.8); MEAN CORPUSCULAR VOLUME 94.6 fL (80-100); MEAN PLATELET VOLUME 9.4 fL (7.4-10.4); PLATELET COUNT 597 x10^3/uL (130-400); RED BLOOD COUNT 2.38 x10^6/uL (3.82-5.3); RED CELL DISTRIBUTION WIDTH 14.5 % (9.6-15.2)
[2019-09-23 05:41] LABS: MD YES
[2019-09-23 05:42] LABS: EOS#(MANUAL) 0.72 x10^3/uL (0.0-0.4); EOS% (MANUAL) 3 % (1-7); LYMPH#(MANUAL) 1.21 x10^3/uL (1-3.4); LYMPHS% (MANUAL) 5 % (22-44); METAMYELOCYTES# (MANUAL) 0.24 x10^3/uL (0-0); METAMYELOCYTES% (MANUAL) 1 % (0-1); MONOS#(MANUAL) 1.21 x10^3/uL (0.3-2.7); MONOS% (MANUAL) 5 % (2-9); SEG#(MANUAL) 20.73 x10^3/uL (1.8-6.8); SEGS% (MANUAL) 86 % (42-75)
[2019-09-23 05:43] LABS: ANISOCYTOSIS 1+; POLYCHROMASIA 1+
[2019-09-23 05:44] LABS: <PLATELET ESTIMATE> INCREASED; HYPOCHROMIA 1+; LARGE PLATELETS 1+
[2019-09-23] MEDS: INSULIN REGULAR MEDIUM DOSE QDAY SQ-INSULIN SCH (07:00)
[2019-09-23 07:02] LABS: MEAN CORPUSCULAR HEMOGLOBIN 30.5 pg (27.0-34.8); MEAN CORPUSCULAR HGB CONC 32.3 g/dL (32.4-35.8); MEAN CORPUSCULAR VOLUME 94.5 fL (80-100); MEAN PLATELET VOLUME 9.2 fL (7.4-10.4); PLATELET COUNT 607 x10^3/uL (130-400); RED BLOOD COUNT 2.55 x10^6/uL (3.82-5.3); RED CELL DISTRIBUTION WIDTH 14.8 % (9.6-15.2)
[2019-09-23 07:22] LABS: MD YES
[2019-09-23 07:24] LABS: <PLATELET ESTIMATE> INCREASED; ANISOCYTOSIS 1+; EOS#(MANUAL) 0.49 x10^3/uL (0.0-0.4); EOS% (MANUAL) 2 % (1-7); HYPOCHROMIA 1+; LARGE PLATELETS 1+; LYMPH#(MANUAL) 0.74 x10^3/uL (1-3.4); LYMPHS% (MANUAL) 3 % (22-44); MONOS#(MANUAL) 1.24 x10^3/uL (0.3-2.7); MONOS% (MANUAL) 5 % (2-9); POLYCHROMASIA 1+; SEG#(MANUAL) 22.23 x10^3/uL (1.8-6.8); SEGS% (MANUAL) 90 % (42-75)
[2019-09-23] MEDS: SODIUM CHLORIDE FLUSH 10ML SYR IVF SCH ×2 (08:14→22:32)
[2019-09-23] MEDS: LEVOTHYROXINE 100 MCG INJ IVPush SCH (08:15)
[2019-09-23] MEDS: LORazepam 2 MG/ML, 1ML IV PRN ×2 (08:15→14:53)
[2019-09-23] MEDS ORDERED: METOPROLOL 1 MG/ML, 5ML ONE (09:55)
[2019-09-23] MEDS: MICAFUNGIN 100 MG in SODIUM CHLORIDE 0.9% 100 ML IV SCH (09:58)
[2019-09-23] MEDS ORDERED: METOPROLOL 1 MG/ML, 5ML IVPush ONE (10:00)
[2019-09-23] MEDS: hydrALAzine 20 MG/ML, 1ML IV PRN (13:20)
[2019-09-23] MEDS ORDERED: [UNRECOGNIZED DRUG - REMARK] MC ONE (13:30)
[2019-09-23] MEDS ORDERED: ALBUTEROL/IPRATROPIUM 2.5MG/0.5MG, 3 ML ONE (14:33)
[2019-09-23] MEDS ORDERED: ALBUTEROL/IPRATROPIUM 2.5MG/0.5MG, 3 ML NPPB PRN (15:00)
--- NOTE | 2019-09-23 15:11 | NUR ---
CLEAR LIQUIDS THINS and ongoing TPN. -Aggressive oral care -ONLY when up at 90 degrees -Only when alert Addendum: 09/23/19 at 1511 by SATNAM HERNANDEZ Amended: Links added.
[2019-09-23] MEDS ORDERED: METOPROLOL 1 MG/ML, 5ML IVPush PRN (15:30)
[2019-09-23] MEDS ORDERED: [UNRECOGNIZED DRUG - OTHER] IV SCH (17:00)
[2019-09-23] MEDS ORDERED: DEXTROSE 70% IV SCH (17:00)
[2019-09-23] MEDS ORDERED: SMOF TPN IV SCH (17:00)
[2019-09-23] MEDS ORDERED: AMINO ACID 10% IV SCH (17:00)
[2019-09-23] MEDS ORDERED: FAT EMUL IV SCH (17:00)
[2019-09-23] MEDS: FILTER, DISP 1.2 MICRON FOR TPN/PVN IV PRN (17:44)
[2019-09-23] MEDS: MORPHINE SULFATE 4 MG/ML, 1ML IVPush PRN (22:35)
[2019-09-24 01:29] VITALS: BP 144/78
[2019-09-24] MEDS: MORPHINE SULFATE 4 MG/ML, 1ML IVPush PRN ×6 (04:01→23:44)
[2019-09-24] MEDS: MEROPENEM 1 GM in SODIUM CHLORIDE 0.9% 100 ML IV SCH ×3 (04:32→23:35)
[2019-09-24 05:11] LABS: ANION GAP 3 mmol/L (5-15); CALCIUM 8.8 mg/dL (8.5-10.1); CHLORIDE 113 mmol/L (98-107)
[2019-09-24 05:12] LABS: CREATININE 0.84 mg/dL (0.55-1.02); MEAN CORPUSCULAR HEMOGLOBIN 30.7 pg (27.0-34.8); MEAN CORPUSCULAR HGB CONC 32.9 g/dL (32.4-35.8); MEAN CORPUSCULAR VOLUME 93.3 fL (80-100); PLATELET COUNT 596 x10^3/uL (130-400); RED BLOOD COUNT 2.84 x10^6/uL (3.82-5.3); RED CELL DISTRIBUTION WIDTH 14.4 % (9.6-15.2)
[2019-09-24 06:02] LABS: BASOPHILS # (AUTO) 0.07 x10^3/uL (0-0.1); BASOPHILS % (AUTO) 0 % (0-1); EOSINOPHILS % (AUTO) 2 % (1-7); LYMPHOCYTES # (AUTO) 1.32 x10^3/uL (1-3.4); LYMPHOCYTES % (AUTO) 6 % (22-44); MD SCAN; MONOCYTES # (AUTO) 2.28 x10^3/uL (0.2-0.8); MONOCYTES % (AUTO) 11 % (2-9); NEUTROPHILS # (AUTO) 17.61 x10^3/uL (1.8-6.8); NEUTROPHILS % (AUTO) 81 % (42-75)
[2019-09-24] MEDS: LORazepam 2 MG/ML, 1ML IV PRN (06:15)
[2019-09-24 08:09] VITALS: BP 168/82
[2019-09-24] MEDS: INSULIN REGULAR MEDIUM DOSE QDAY SQ-INSULIN SCH (09:00)
[2019-09-24] MEDS: METOPROLOL TARTRATE 25 MG TABLET PO SCH (10:15)
[2019-09-24] MEDS: LEVOTHYROXINE 100 MCG INJ IVPush SCH (10:16)
[2019-09-24] MEDS: SODIUM CHLORIDE FLUSH 10ML SYR IVF SCH ×2 (10:18→20:22)
[2019-09-24] MEDS: VANCOMYCIN 1,500 MG in SODIUM CHLORIDE 0.9% 250 ML IV SCH (11:25)
[2019-09-24] MEDS: MICAFUNGIN 100 MG in SODIUM CHLORIDE 0.9% 100 ML IV SCH (11:25)
--- NOTE | 2019-09-24 11:51 | NUR ---
FULL LIQUID -Up right for meals -Straws ok Meds as tolerated Addendum: 09/24/19 at [address] Amended: Links added.
[2019-09-24] MEDS: METOPROLOL TARTRATE 50 MG TABLET PO SCH ×2 (12:30→20:21)
[2019-09-24 12:50] VITALS: BP 160/78
[2019-09-24] MEDS ORDERED: DEXTROSE 70% IV SCH (17:00)
[2019-09-24] MEDS ORDERED: FAT EMUL IV SCH (17:00)
[2019-09-24] MEDS ORDERED: [UNRECOGNIZED DRUG - OTHER] IV SCH (17:00)
[2019-09-24] MEDS ORDERED: AMINO ACID 10% IV SCH (17:00)
[2019-09-24] MEDS ORDERED: SMOF TPN IV SCH (17:00)
[2019-09-24] MEDS: FILTER, DISP 1.2 MICRON FOR TPN/PVN IV PRN (17:44)
[2019-09-24 18:31] VITALS: BP 167/79
[2019-09-25 02:16] VITALS: BP 149/71
[2019-09-25] MEDS: MORPHINE SULFATE 4 MG/ML, 1ML IVPush PRN ×3 (03:01→20:43)
[2019-09-25 05:43] LABS: ANION GAP 6 mmol/L (5-15); CALCIUM 8.8 mg/dL (8.5-10.1); CHLORIDE 109 mmol/L (98-107); CREATININE 0.82 mg/dL (0.55-1.02)
[2019-09-25] MEDS: MEROPENEM 1 GM in SODIUM CHLORIDE 0.9% 100 ML IV SCH ×3 (08:47→23:06)
[2019-09-25] MEDS: AMLODIPINE 2.5 MG TABLET PO SCH (08:48)
[2019-09-25] MEDS: LEVOTHYROXINE 100 MCG INJ IVPush SCH (08:48)
[2019-09-25] MEDS: METOPROLOL TARTRATE 50 MG TABLET PO SCH ×2 (08:48→20:41)
[2019-09-25] MEDS: SODIUM CHLORIDE FLUSH 10ML SYR IVF SCH ×2 (08:54→20:45)
[2019-09-25] MEDS: INSULIN REGULAR MEDIUM DOSE QDAY SQ-INSULIN SCH (09:00)
[2019-09-25] MEDS: OXYcodone/APAP 5/325MG TABLET PO SCH ×4 (10:27→22:37)
[2019-09-25] MEDS: MICAFUNGIN 100 MG in SODIUM CHLORIDE 0.9% 100 ML IV SCH (11:25)
[2019-09-25 12:18] VITALS: BP 150/76
--- NOTE | 2019-09-25 14:55 | NUR ---
REC: Reg/thins Addendum: 09/25/19 at 1455 by Bethany HERNANDEZ Amended: Links added.
[2019-09-25] MEDS ORDERED: AMINO ACID 10% IV SCH (17:00)
[2019-09-25] MEDS ORDERED: SMOF TPN IV SCH (17:00)
[2019-09-25] MEDS ORDERED: [UNRECOGNIZED DRUG - OTHER] IV SCH (17:00)
[2019-09-25] MEDS ORDERED: FAT EMUL IV SCH (17:00)
[2019-09-25] MEDS ORDERED: DEXTROSE 70% IV SCH (17:00)
[2019-09-25] MEDS: FILTER, DISP 1.2 MICRON FOR TPN/PVN IV PRN (17:08)
[2019-09-25 20:04] VITALS: BP 149/71
[2019-09-25 22:03] VITALS: BP 148/81
[2019-09-26 01:48] VITALS: BP 137/79
[2019-09-26] MEDS: MORPHINE SULFATE 4 MG/ML, 1ML IVPush PRN ×4 (02:27→21:02)
[2019-09-26] MEDS: OXYcodone/APAP 5/325MG TABLET PO SCH ×4 (05:01→23:14)
[2019-09-26 05:46] LABS: CHLORIDE 106 mmol/L (98-107)
[2019-09-26 05:52] LABS: ANION GAP 5 mmol/L (5-15); CALCIUM 8.8 mg/dL (8.5-10.1); CREATININE 0.79 mg/dL (0.55-1.02)
[2019-09-26 05:59] LABS: MEAN CORPUSCULAR HEMOGLOBIN 31.3 pg (27.0-34.8); MEAN CORPUSCULAR HGB CONC 32.7 g/dL (32.4-35.8); MEAN CORPUSCULAR VOLUME 95.9 fL (80-100); MEAN PLATELET VOLUME 9.9 fL (7.4-10.4); PLATELET COUNT 638 x10^3/uL (130-400); RED BLOOD COUNT 2.69 x10^6/uL (3.82-5.3); RED CELL DISTRIBUTION WIDTH 14.7 % (9.6-15.2)
[2019-09-26] MEDS: MEROPENEM 1 GM in SODIUM CHLORIDE 0.9% 100 ML IV SCH ×3 (06:12→23:13)
[2019-09-26 06:21] LABS: BASOPHILS % (AUTO) 0 % (0-1); EOSINOPHILS # (AUTO) 1.35 x10^3/uL (0-0.4); EOSINOPHILS % (AUTO) 5 % (1-7); LYMPHOCYTES # (AUTO) 1.54 x10^3/uL (1-3.4); LYMPHOCYTES % (AUTO) 6 % (22-44); MD SCAN; MONOCYTES # (AUTO) 2.43 x10^3/uL (0.2-0.8); MONOCYTES % (AUTO) 9 % (2-9); NEUTROPHILS # (AUTO) 20.77 x10^3/uL (1.8-6.8); NEUTROPHILS % (AUTO) 79 % (42-75)
[2019-09-26 06:34] VITALS: BP 132/75
[2019-09-26] MEDS ORDERED: FUROSEMIDE 40 MG/4 ML IV ONE (09:00)
[2019-09-26] MEDS: INSULIN REGULAR MEDIUM DOSE QDAY SQ-INSULIN SCH (09:00)
[2019-09-26] MEDS: METOPROLOL TARTRATE 50 MG TABLET PO SCH ×2 (09:46→20:53)
[2019-09-26] MEDS: AMLODIPINE 2.5 MG TABLET PO SCH (09:46)
[2019-09-26] MEDS: SODIUM CHLORIDE FLUSH 10ML SYR IVF SCH ×2 (09:47→20:54)
[2019-09-26] MEDS: LEVOTHYROXINE 100 MCG INJ IVPush SCH (09:47)
[2019-09-26] MEDS: MICAFUNGIN 100 MG in SODIUM CHLORIDE 0.9% 100 ML IV SCH (11:31)
[2019-09-26 14:05] VITALS: BP 144/73
[2019-09-26] MEDS: LIDODERM 5% PATCH TD SCH (15:21)
[2019-09-26] MEDS ORDERED: AMINO ACID 10% IV SCH (17:00)
[2019-09-26] MEDS ORDERED: DEXTROSE 70% IV SCH (17:00)
[2019-09-26] MEDS ORDERED: [UNRECOGNIZED DRUG - OTHER] IV SCH (17:00)
[2019-09-26] MEDS ORDERED: FAT EMUL IV SCH (17:00)
[2019-09-26] MEDS ORDERED: SMOF TPN IV SCH (17:00)
[2019-09-26] MEDS ORDERED: OMNIPAQUE 350 MG/ML, 100ML BOTTLE ONE (17:35)
[2019-09-26] MEDS: FILTER, DISP 1.2 MICRON FOR TPN/PVN IV PRN (17:35)
[2019-09-26 20:31] VITALS: BP 134/71
[2019-09-26] MEDS: LORazepam 2 MG/ML, 1ML IV PRN (21:08)
[2019-09-26 22:39] VITALS: BP 127/66
[2019-09-27] VITALS (7 sets, daily range): BP systolic 118–153; BP diastolic 60–79
[2019-09-27] MEDS: LIDODERM REMOVE PATCH NOTE XX SCH (02:58)
[2019-09-27 04:18] LABS: MEAN CORPUSCULAR HEMOGLOBIN 31.2 pg (27.0-34.8); MEAN CORPUSCULAR HGB CONC 32.7 g/dL (32.4-35.8); MEAN CORPUSCULAR VOLUME 95.4 fL (80-100); RED CELL DISTRIBUTION WIDTH 14.5 % (9.6-15.2)
[2019-09-27 04:30] LABS: ALANINE AMINOTRANSFERASE 100 U/L (12-78); ALBUMIN 2.2 g/dL (3.4-5.0); ANION GAP 3 mmol/L (5-15); CALCIUM 8.7 mg/dL (8.5-10.1); CHLORIDE 106 mmol/L (98-107); CREATININE 0.77 mg/dL (0.55-1.02)
[2019-09-27] MEDS: OXYcodone/APAP 5/325MG TABLET PO SCH ×5 (04:31→22:46)
[2019-09-27 04:36] LABS: ALKALINE PHOSPHATASE 364 U/L (45-117); BILIRUBIN,TOTAL 0.4 mg/dL (0.2-1.0); PREALBUMIN 16.3 mg/dL (20.0-40.0); TOTAL PROTEIN 6.1 g/dL (6.4-8.2); TRIGLYCERIDES 87 mg/dL (50-200)
[2019-09-27 04:46] LABS: MD YES; MEAN PLATELET VOLUME 10.1 fL (7.4-10.4); PLATELET COUNT 706 x10^3/uL (130-400)
[2019-09-27 04:51] LABS: <PLATELET ESTIMATE> INCREASED; ANISOCYTOSIS 1+; EOS#(MANUAL) 0.68 x10^3/uL (0.0-0.4); EOS% (MANUAL) 3 % (1-7); HYPOCHROMIA 1+; LARGE PLATELETS 1+; LYMPH#(MANUAL) 1.81 x10^3/uL (1-3.4); LYMPHS% (MANUAL) 8 % (22-44); MONOS#(MANUAL) 1.58 x10^3/uL (0.3-2.7); MONOS% (MANUAL) 7 % (2-9); POLYCHROMASIA 1+; REACTIVE LYMPHS # (MANUAL) 0.23 x10^3/uL (0-0); REACTIVE LYMPHS % (MANUAL) 1 % (0-0); SEG#(MANUAL) 18.31 x10^3/uL (1.8-6.8); SEGS% (MANUAL) 81 % (42-75)
[2019-09-27] MEDS: INSULIN REGULAR MEDIUM DOSE QDAY SQ-INSULIN SCH (07:21)
[2019-09-27] MEDS: METOPROLOL TARTRATE 50 MG TABLET PO SCH ×2 (08:30→20:54)
[2019-09-27] MEDS: SODIUM CHLORIDE FLUSH 10ML SYR IVF SCH ×2 (08:31→20:54)
[2019-09-27] MEDS: AMLODIPINE 2.5 MG TABLET PO SCH (08:31)
[2019-09-27] MEDS: LEVOTHYROXINE 100 MCG INJ IVPush SCH (08:31)
[2019-09-27] MEDS: MEROPENEM 1 GM in SODIUM CHLORIDE 0.9% 100 ML IV SCH ×2 (08:31→17:39)
[2019-09-27] MEDS: MICAFUNGIN 100 MG in SODIUM CHLORIDE 0.9% 100 ML IV SCH (11:13)
[2019-09-27] MEDS ORDERED: DIPHENHYDRAMINE 25 MG CAPSULE PO ONE (11:30)
[2019-09-27] MEDS ORDERED: ACETAMINOPHEN 325 MG TABLET PO ONE (11:30)
[2019-09-27 13:24] LABS: ANION GAP 8 mmol/L (5-15); CALCIUM 9.1 mg/dL (8.5-10.1); CHLORIDE 104 mmol/L (98-107); CREATININE 0.81 mg/dL (0.55-1.02)
[2019-09-27] MEDS: LIDODERM 5% PATCH TD SCH (15:00)
[2019-09-27] MEDS ORDERED: LIDOCAINE 1%, 10ML ONE (15:36)
[2019-09-27] MEDS ORDERED: AMINO ACID 10% IV SCH (17:00)
[2019-09-27] MEDS ORDERED: FAT EMUL IV SCH (17:00)
[2019-09-27] MEDS ORDERED: SMOF TPN IV SCH (17:00)
[2019-09-27] MEDS ORDERED: DEXTROSE 70% IV SCH (17:00)
[2019-09-27] MEDS ORDERED: [UNRECOGNIZED DRUG - OTHER] IV SCH (17:00)
[2019-09-27] MEDS: FILTER, DISP 1.2 MICRON FOR TPN/PVN IV PRN (17:39)
[2019-09-28] MEDS: MEROPENEM 1 GM in SODIUM CHLORIDE 0.9% 100 ML IV SCH ×3 (00:37→16:39)
[2019-09-28] MEDS: MORPHINE SULFATE 4 MG/ML, 1ML IVPush PRN ×6 (00:51→20:55)
[2019-09-28] MEDS: LIDODERM REMOVE PATCH NOTE XX SCH (01:28)
[2019-09-28 02:25] VITALS: BP 131/60
[2019-09-28] MEDS: OXYcodone/APAP 5/325MG TABLET PO SCH ×4 (04:25→23:04)
[2019-09-28 05:16] LABS: ANION GAP 5 mmol/L (5-15); CALCIUM 8.6 mg/dL (8.5-10.1); CHLORIDE 108 mmol/L (98-107); CREATININE 0.68 mg/dL (0.55-1.02)
[2019-09-28] MEDS: INSULIN REGULAR MEDIUM DOSE QDAY SQ-INSULIN SCH (06:52)
[2019-09-28 07:28] VITALS: BP 147/78
[2019-09-28 08:58] LABS: MEAN CORPUSCULAR HEMOGLOBIN 31.3 pg (27.0-34.8); MEAN CORPUSCULAR HGB CONC 32.3 g/dL (32.4-35.8); MEAN CORPUSCULAR VOLUME 96.9 fL (80-100); MEAN PLATELET VOLUME 10.3 fL (7.4-10.4); PLATELET COUNT 724 x10^3/uL (130-400); RED CELL DISTRIBUTION WIDTH 16.2 % (9.6-15.2)
[2019-09-28] MEDS: SODIUM CHLORIDE FLUSH 10ML SYR IVF SCH ×2 (09:00→21:00)
[2019-09-28] MEDS: METOPROLOL TARTRATE 50 MG TABLET PO SCH ×2 (09:25→21:04)
[2019-09-28] MEDS: AMLODIPINE 2.5 MG TABLET PO SCH (09:25)
[2019-09-28] MEDS: LEVOTHYROXINE 100 MCG INJ IVPush SCH (09:25)
[2019-09-28 09:57] LABS: MD YES
[2019-09-28 10:02] LABS: <PLATELET ESTIMATE> INCREASED; ANISOCYTOSIS 1+; BAND#(MANUAL) 0.18 x10^3/uL; BANDS%(MANUAL) 1 % (0-7); EOS#(MANUAL) 0.55 x10^3/uL (0.0-0.4); EOS% (MANUAL) 3 % (1-7); LYMPH#(MANUAL) 1.46 x10^3/uL (1-3.4); LYMPHS% (MANUAL) 8 % (22-44); MONOS#(MANUAL) 1.83 x10^3/uL (0.3-2.7); MONOS% (MANUAL) 10 % (2-9); POLYCHROMASIA 1+; SEG#(MANUAL) 14.27 x10^3/uL (1.8-6.8); SEGS% (MANUAL) 78 % (42-75)
[2019-09-28 10:03] LABS: LARGE PLATELETS 1+; PMNS WITH VACUOLES 1+
[2019-09-28 10:05] LABS: SPHEROCYTES 1+
[2019-09-28] MEDS: MICAFUNGIN 100 MG in SODIUM CHLORIDE 0.9% 100 ML IV SCH (11:10)
[2019-09-28 12:45] VITALS: BP 147/71
[2019-09-28] MEDS: LIDODERM 5% PATCH TD SCH ×2 (13:41→15:50)
[2019-09-28] MEDS: SMOF TPN IV SCH (16:40)
[2019-09-28] MEDS: AMINO ACID 10% IV SCH (16:40)
[2019-09-28] MEDS: DEXTROSE 70% IV SCH (16:40)
[2019-09-28] MEDS: FILTER, DISP 1.2 MICRON FOR TPN/PVN IV PRN (16:40)
[2019-09-28] MEDS: [UNRECOGNIZED DRUG - OTHER] IV SCH (16:40)
[2019-09-28] MEDS: FAT EMUL IV SCH (16:40)
[2019-09-28 18:46] VITALS: BP 153/77
[2019-09-29] MEDS: MEROPENEM 1 GM in SODIUM CHLORIDE 0.9% 100 ML IV SCH ×3 (01:07→17:32)
[2019-09-29 01:15] VITALS: BP 148/72
[2019-09-29] MEDS: LIDODERM REMOVE PATCH NOTE XX SCH (03:00)
[2019-09-29] MEDS: OXYcodone/APAP 5/325MG TABLET PO SCH ×5 (04:49→20:34)
[2019-09-29 05:15] LABS: MEAN CORPUSCULAR HEMOGLOBIN 30.7 pg (27.0-34.8); MEAN CORPUSCULAR HGB CONC 32.4 g/dL (32.4-35.8); MEAN CORPUSCULAR VOLUME 94.8 fL (80-100); PLATELET COUNT 720 x10^3/uL (130-400); RED BLOOD COUNT 2.83 x10^6/uL (3.82-5.3); RED CELL DISTRIBUTION WIDTH 14.9 % (9.6-15.2)
[2019-09-29 05:22] LABS: ANION GAP 5 mmol/L (5-15); CALCIUM 8.5 mg/dL (8.5-10.1); CHLORIDE 108 mmol/L (98-107)
[2019-09-29 05:23] LABS: CREATININE 0.65 mg/dL (0.55-1.02)
[2019-09-29 05:42] LABS: BASOPHILS # (AUTO) 0.07 x10^3/uL (0-0.1); BASOPHILS % (AUTO) 0 % (0-1); EOSINOPHILS # (AUTO) 0.83 x10^3/uL (0-0.4); EOSINOPHILS % (AUTO) 5 % (1-7); LYMPHOCYTES # (AUTO) 1.21 x10^3/uL (1-3.4); LYMPHOCYTES % (AUTO) 7 % (22-44); MD SCAN; MONOCYTES # (AUTO) 2.04 x10^3/uL (0.2-0.8); MONOCYTES % (AUTO) 12 % (2-9); NEUTROPHILS # (AUTO) 13.05 x10^3/uL (1.8-6.8); NEUTROPHILS % (AUTO) 76 % (42-75)
[2019-09-29 06:58] VITALS: BP 153/79
[2019-09-29] MEDS: METOPROLOL TARTRATE 50 MG TABLET PO SCH ×2 (07:51→20:34)
[2019-09-29] MEDS: INSULIN REGULAR MEDIUM DOSE QDAY SQ-INSULIN SCH (07:51)
[2019-09-29] MEDS: AMLODIPINE 2.5 MG TABLET PO SCH (07:51)
[2019-09-29] MEDS: SODIUM CHLORIDE FLUSH 10ML SYR IVF SCH ×2 (08:00→20:36)
[2019-09-29] MEDS: LEVOTHYROXINE 100 MCG INJ IVPush SCH (08:00)
[2019-09-29] MEDS: MICAFUNGIN 100 MG in SODIUM CHLORIDE 0.9% 100 ML IV SCH (10:49)
[2019-09-29 13:12] VITALS: BP 164/77
[2019-09-29] MEDS: LIDODERM 5% PATCH TD SCH (15:21)
[2019-09-29] MEDS: SMOF TPN IV SCH (17:00)
[2019-09-29] MEDS: [UNRECOGNIZED DRUG - OTHER] IV SCH (17:00)
[2019-09-29] MEDS: AMINO ACID 10% IV SCH (17:00)
[2019-09-29] MEDS: DEXTROSE 70% IV SCH (17:00)
[2019-09-29] MEDS: FAT EMUL IV SCH (17:00)
[2019-09-29 19:25] VITALS: BP 150/70
[2019-09-29] MEDS ORDERED: ACETAMINOPHEN 325 MG TABLET PO PRN (20:00)
[2019-09-29] MEDS ORDERED: ACETAMINOPHEN 325 MG TABLET ONE (20:20)
[2019-09-30 00:28] VITALS: BP 146/73
[2019-09-30] MEDS: MEROPENEM 1 GM in SODIUM CHLORIDE 0.9% 100 ML IV SCH ×3 (00:30→16:14)
[2019-09-30] MEDS: OXYcodone/APAP 5/325MG TABLET PO SCH ×5 (02:09→20:59)
[2019-09-30] MEDS: LIDODERM REMOVE PATCH NOTE XX SCH (02:28)
[2019-09-30] MEDS: LEVOTHYROXINE 50 MCG TABLET PO SCH (05:01)
[2019-09-30 05:23] LABS: ANION GAP 7 mmol/L (5-15); CALCIUM 9.1 mg/dL (8.5-10.1); CHLORIDE 108 mmol/L (98-107); CREATININE 0.65 mg/dL (0.55-1.02)
[2019-09-30 05:31] LABS: MEAN CORPUSCULAR HEMOGLOBIN 30.7 pg (27.0-34.8); MEAN CORPUSCULAR HGB CONC 32.2 g/dL (32.4-35.8); MEAN CORPUSCULAR VOLUME 95.2 fL (80-100); MEAN PLATELET VOLUME 9.9 fL (7.4-10.4); PLATELET COUNT 722 x10^3/uL (130-400); RED BLOOD COUNT 2.97 x10^6/uL (3.82-5.3); RED CELL DISTRIBUTION WIDTH 14.8 % (9.6-15.2)
[2019-09-30 05:48] LABS: BASOPHILS % (AUTO) 1 % (0-1); EOSINOPHILS % (AUTO) 4 % (1-7); LYMPHOCYTES # (AUTO) 1.39 x10^3/uL (1-3.4); LYMPHOCYTES % (AUTO) 9 % (22-44); MD SCAN; MONOCYTES # (AUTO) 1.69 x10^3/uL (0.2-0.8); MONOCYTES % (AUTO) 10 % (2-9); NEUTROPHILS # (AUTO) 12.28 x10^3/uL (1.8-6.8); NEUTROPHILS % (AUTO) 76 % (42-75)
[2019-09-30 07:00] VITALS: BP 165/83
[2019-09-30] MEDS: AMLODIPINE 2.5 MG TABLET PO SCH (07:50)
[2019-09-30] MEDS: METOPROLOL TARTRATE 50 MG TABLET PO SCH ×2 (07:50→21:00)
[2019-09-30] MEDS: SODIUM CHLORIDE FLUSH 10ML SYR IVF SCH ×2 (07:51→21:00)
[2019-09-30] MEDS: MICAFUNGIN 100 MG in SODIUM CHLORIDE 0.9% 100 ML IV SCH (11:00)
[2019-09-30 12:35] VITALS: BP 153/88
[2019-09-30] MEDS: LIDODERM 5% PATCH TD SCH (14:41)
[2019-09-30 20:39] VITALS: BP 152/80
[2019-10-01] MEDS: MEROPENEM 1 GM in SODIUM CHLORIDE 0.9% 100 ML IV SCH ×3 (00:15→16:15)
[2019-10-01 00:41] VITALS: BP 122/70
[2019-10-01] MEDS: LIDODERM REMOVE PATCH NOTE XX SCH (03:00)
[2019-10-01] MEDS: OXYcodone/APAP 5/325MG TABLET PO SCH ×4 (03:22→20:26)
[2019-10-01 03:57] LABS: MEAN CORPUSCULAR HEMOGLOBIN 30.8 pg (27.0-34.8); MEAN CORPUSCULAR HGB CONC 32.7 g/dL (32.4-35.8); MEAN CORPUSCULAR VOLUME 94.2 fL (80-100); MEAN PLATELET VOLUME 9.2 fL (7.4-10.4); PLATELET COUNT 812 x10^3/uL (130-400); RED CELL DISTRIBUTION WIDTH 14.4 % (9.6-15.2)
[2019-10-01 04:05] LABS: ANION GAP 6 mmol/L (5-15); CHLORIDE 107 mmol/L (98-107); CREATININE 0.66 mg/dL (0.55-1.02)
[2019-10-01 04:14] LABS: BASOPHILS % (AUTO) 1 % (0-1); EOSINOPHILS # (AUTO) 0.76 x10^3/uL (0-0.4); EOSINOPHILS % (AUTO) 5 % (1-7); LYMPHOCYTES # (AUTO) 1.53 x10^3/uL (1-3.4); LYMPHOCYTES % (AUTO) 11 % (22-44); MD SCAN; MONOCYTES # (AUTO) 1.27 x10^3/uL (0.2-0.8); MONOCYTES % (AUTO) 9 % (2-9); NEUTROPHILS # (AUTO) 10.39 x10^3/uL (1.8-6.8); NEUTROPHILS % (AUTO) 74 % (42-75)
[2019-10-01] MEDS: LEVOTHYROXINE 50 MCG TABLET PO SCH (06:26)
[2019-10-01 07:05] VITALS: BP 167/80
[2019-10-01] MEDS: AMLODIPINE 2.5 MG TABLET PO SCH (07:37)
[2019-10-01] MEDS: METOPROLOL TARTRATE 50 MG TABLET PO SCH ×2 (07:37→20:27)
[2019-10-01] MEDS: SODIUM CHLORIDE FLUSH 10ML SYR IVF SCH ×2 (07:38→20:28)
[2019-10-01] MEDS: MICAFUNGIN 100 MG in SODIUM CHLORIDE 0.9% 100 ML IV SCH (11:04)
[2019-10-01 11:12] VITALS: BP 148/89
[2019-10-01 12:45] VITALS: BP 127/71
[2019-10-01] MEDS: LIDODERM 5% PATCH TD SCH (15:00)
[2019-10-01 16:25] VITALS: BP 158/88
[2019-10-01] MEDS: LORazepam 2 MG/ML, 1ML IV PRN (17:54)
[2019-10-01 20:17] VITALS: BP 128/74
[2019-10-01] MEDS ORDERED: VALSARTAN 80 MG TABLET PO ONE (20:30)
[2019-10-02] MEDS: MEROPENEM 1 GM in SODIUM CHLORIDE 0.9% 100 ML IV SCH ×3 (00:20→17:04)
[2019-10-02 00:21] VITALS: BP 139/81
[2019-10-02 01:27] LABS: CULTURE INDICATED? YES; MICROSCOPIC INDICATED
[2019-10-02] MEDS: LIDODERM REMOVE PATCH NOTE XX SCH (02:33)
[2019-10-02] MEDS: OXYcodone/APAP 5/325MG TABLET PO SCH ×4 (02:35→21:13)
[2019-10-02] MEDS: LEVOTHYROXINE 50 MCG TABLET PO SCH (04:21)
[2019-10-02 06:50] VITALS: BP 137/71
[2019-10-02] MEDS: PHENAZOPYRIDINE 100 MG TABLET PO PRN ×2 (08:01→19:45)
[2019-10-02] MEDS: METOPROLOL TARTRATE 50 MG TABLET PO SCH (08:02)
[2019-10-02] MEDS: SODIUM CHLORIDE FLUSH 10ML SYR IVF SCH ×2 (08:02→19:49)
[2019-10-02] MEDS: AMLODIPINE 2.5 MG TABLET PO SCH (08:02)
[2019-10-02 10:06] LABS: BASOPHILS # (AUTO) 0.07 x10^3/uL (0-0.1); BASOPHILS % (AUTO) 1 % (0-1); EOSINOPHILS # (AUTO) 0.44 x10^3/uL (0-0.4); EOSINOPHILS % (AUTO) 4 % (1-7); LYMPHOCYTES # (AUTO) 1.19 x10^3/uL (1-3.4); LYMPHOCYTES % (AUTO) 11 % (22-44); MD NO; MEAN CORPUSCULAR HEMOGLOBIN 29.9 pg (27.0-34.8); MEAN CORPUSCULAR HGB CONC 32.5 g/dL (32.4-35.8); MEAN CORPUSCULAR VOLUME 91.8 fL (80-100); MEAN PLATELET VOLUME 9.3 fL (7.4-10.4); MONOCYTES # (AUTO) 1.07 x10^3/uL (0.2-0.8); MONOCYTES % (AUTO) 10 % (2-9); NEUTROPHILS # (AUTO) 8.31 x10^3/uL (1.8-6.8); NEUTROPHILS % (AUTO) 75 % (42-75); PLATELET COUNT 771 x10^3/uL (130-400); RED BLOOD COUNT 3.08 x10^6/uL (3.82-5.3); RED CELL DISTRIBUTION WIDTH 14.7 % (9.6-15.2)
[2019-10-02 10:16] LABS: ANION GAP 7 mmol/L (5-15); CALCIUM 8.4 mg/dL (8.5-10.1); CHLORIDE 107 mmol/L (98-107)
[2019-10-02 10:17] LABS: CREATININE 0.63 mg/dL (0.55-1.02)
[2019-10-02] MEDS: MICAFUNGIN 100 MG in SODIUM CHLORIDE 0.9% 100 ML IV SCH (12:03)
[2019-10-02 13:15] VITALS: BP 134/71
[2019-10-02] MEDS: LIDODERM 5% PATCH TD SCH (14:20)
[2019-10-02 19:17] VITALS: BP 149/73
[2019-10-02] MEDS: AMOXICILLIN/CLAV 875-125MG TABLET PO SCH (21:13)
[2019-10-03 00:46] VITALS: BP 149/68
[2019-10-03] MEDS: LIDODERM REMOVE PATCH NOTE XX SCH (03:07)
[2019-10-03] MEDS: OXYcodone/APAP 5/325MG TABLET PO SCH ×2 (03:07→09:00)
[2019-10-03] MEDS: PHENAZOPYRIDINE 100 MG TABLET PO PRN ×3 (03:49→21:18)
[2019-10-03 04:15] LABS: BASOPHILS # (AUTO) 0.09 x10^3/uL (0-0.1); BASOPHILS % (AUTO) 1 % (0-1); EOSINOPHILS % (AUTO) 7 % (1-7); LYMPHOCYTES # (AUTO) 1.59 x10^3/uL (1-3.4); LYMPHOCYTES % (AUTO) 13 % (22-44); MD NO; MEAN CORPUSCULAR HEMOGLOBIN 30.5 pg (27.0-34.8); MEAN CORPUSCULAR HGB CONC 32.3 g/dL (32.4-35.8); MEAN CORPUSCULAR VOLUME 94.2 fL (80-100); MEAN PLATELET VOLUME 9.5 fL (7.4-10.4); MONOCYTES # (AUTO) 1.23 x10^3/uL (0.2-0.8); MONOCYTES % (AUTO) 10 % (2-9); NEUTROPHILS # (AUTO) 8.25 x10^3/uL (1.8-6.8); NEUTROPHILS % (AUTO) 69 % (42-75); PLATELET COUNT 738 x10^3/uL (130-400); RED BLOOD COUNT 3.09 x10^6/uL (3.82-5.3); RED CELL DISTRIBUTION WIDTH 14.3 % (9.6-15.2)
[2019-10-03 04:22] LABS: ANION GAP 5 mmol/L (5-15); CALCIUM 8.6 mg/dL (8.5-10.1); CHLORIDE 107 mmol/L (98-107); CREATININE 0.61 mg/dL (0.55-1.02)
[2019-10-03] MEDS: ASPIRIN 81 MG TABLET EC PO SCH (06:11)
[2019-10-03] MEDS: LEVOTHYROXINE 50 MCG TABLET PO SCH (06:14)
[2019-10-03 08:05] VITALS: BP 144/73
[2019-10-03] MEDS: AMOXICILLIN/CLAV 875-125MG TABLET PO SCH ×2 (08:53→21:18)
[2019-10-03] MEDS: NEBIVOLOL HCL 5 MG TABLET PO SCH (08:54)
[2019-10-03] MEDS: SODIUM CHLORIDE FLUSH 10ML SYR IVF SCH ×2 (08:55→21:19)
[2019-10-03] MEDS ORDERED: PHENAZOPYRIDINE 200 MG TABLET ONE (14:15)
[2019-10-03] MEDS: OXYcodone/APAP 5/325MG TABLET PO PRN ×2 (14:20→21:18)
[2019-10-03 14:57] VITALS: BP 144/88
[2019-10-03] MEDS: LIDODERM 5% PATCH TD SCH (15:00)
[2019-10-03 17:59] VITALS: BP 157/90
[2019-10-03 20:08] VITALS: BP 135/74
[2019-10-04 02:08] VITALS: BP 133/78
[2019-10-04] MEDS: LIDODERM REMOVE PATCH NOTE XX SCH (03:00)
[2019-10-04] MEDS: PHENAZOPYRIDINE 100 MG TABLET PO PRN ×2 (04:22→10:41)
[2019-10-04] MEDS: OXYcodone/APAP 5/325MG TABLET PO PRN (04:22)
[2019-10-04 05:28] LABS: MEAN CORPUSCULAR HEMOGLOBIN 30.5 pg (27.0-34.8); MEAN CORPUSCULAR HGB CONC 32.3 g/dL (32.4-35.8); MEAN CORPUSCULAR VOLUME 94.4 fL (80-100); MEAN PLATELET VOLUME 10.1 fL (7.4-10.4); PLATELET COUNT 775 x10^3/uL (130-400); RED CELL DISTRIBUTION WIDTH 14.3 % (9.6-15.2)
[2019-10-04 05:34] LABS: ALANINE AMINOTRANSFERASE 49 U/L (12-78); ALBUMIN 2.6 g/dL (3.4-5.0); ANION GAP 6 mmol/L (5-15); CALCIUM 8.9 mg/dL (8.5-10.1); CHLORIDE 106 mmol/L (98-107)
[2019-10-04 05:36] LABS: ALKALINE PHOSPHATASE 347 U/L (45-117); BILIRUBIN,TOTAL 0.3 mg/dL (0.2-1.0); CREATININE 0.65 mg/dL (0.55-1.02)
[2019-10-04 06:10] LABS: BASOPHILS # (AUTO) 0.13 x10^3/uL (0-0.1); BASOPHILS % (AUTO) 1 % (0-1); EOSINOPHILS # (AUTO) 0.68 x10^3/uL (0-0.4); EOSINOPHILS % (AUTO) 5 % (1-7); LYMPHOCYTES # (AUTO) 1.34 x10^3/uL (1-3.4); LYMPHOCYTES % (AUTO) 11 % (22-44); MD SCAN; MONOCYTES % (AUTO) 9 % (2-9); NEUTROPHILS # (AUTO) 9.37 x10^3/uL (1.8-6.8); NEUTROPHILS % (AUTO) 74 % (42-75)
[2019-10-04] MEDS: LEVOTHYROXINE 50 MCG TABLET PO SCH (06:13)
[2019-10-04] MEDS: NEBIVOLOL HCL 5 MG TABLET PO SCH (06:13)
[2019-10-04] MEDS: ASPIRIN 81 MG TABLET EC PO SCH (06:13)
[2019-10-04] MEDS: SODIUM CHLORIDE FLUSH 10ML SYR IVF SCH (08:07)
[2019-10-04] MEDS: AMOXICILLIN/CLAV 875-125MG TABLET PO SCH (08:07)
[2019-10-04 09:02] VITALS: BP 141/82
[2019-10-04] MEDS ORDERED: AMOX1TAB64 PO (09:42)
[2019-10-04] MEDS ORDERED: OXYC-302 PO (09:43)
[2019-10-04] MEDS ORDERED: ALPR0.5T7 PO (09:44)
[2019-10-04] MEDS ORDERED: PHENAZOPYRIDINE 200 MG TABLET ONE (10:38)
== END 2019-10-04 11:00 | disposition home or self-care (01) | DRG 329 ==
LOC: ORIP 07:44 → EDSTATUS 12:30 → CCU 17:31 → 5SO 09-23 12:58 → 4NW 09-26 22:26
PROVIDERS: ADMIT Specialist; ATTEND Internal Medicine
PROC: 0DTF0ZZ Resection of Right Large Intestine, Open Approach (ICD-10-PCS; 2019-09-13)
PROC: 0UT20ZZ Resection of Bilateral Ovaries, Open Approach (ICD-10-PCS; 2019-09-13)
PROC: 07TP0ZZ Resection of Spleen, Open Approach (ICD-10-PCS; 2019-09-13)
PROC: 0D1B0Z4 Bypass Ileum to Cutaneous, Open Approach (ICD-10-PCS; 2019-09-13)
PROC: 0T788DZ Dilation of Bilateral Ureters with Intraluminal Device, Via Natural or Artificial Opening Endoscopic (ICD-10-PCS; 2019-09-13)
PROC: 0BBT0ZX Excision of Diaphragm, Open Approach, Diagnostic (ICD-10-PCS; 2019-09-13)
PROC: 0UT90ZZ Resection of Uterus, Open Approach (ICD-10-PCS; 2019-09-13)
PROC: 0DB80ZZ Excision of Small Intestine, Open Approach (ICD-10-PCS; 2019-09-13)
PROC: 0DTU0ZZ Resection of Omentum, Open Approach (ICD-10-PCS; 2019-09-13)
PROC: 30233N1 Transfusion of Nonautologous Red Blood Cells into Peripheral Vein, Percutaneous Approach (ICD-10-PCS; 2019-09-13)
PROC: 03HY32Z Insertion of Monitoring Device into Upper Artery, Percutaneous Approach (ICD-10-PCS; 2019-09-13)
PROC: 02H633Z Insertion of Infusion Device into Right Atrium, Percutaneous Approach (ICD-10-PCS; 2019-09-13)
PROC: B548ZZA Ultrasonography of Superior Vena Cava, Guidance (ICD-10-PCS; 2019-09-13)
PROC: 5A1955Z Respiratory Ventilation, Greater than 96 Consecutive Hours (ICD-10-PCS; 2019-09-16)
PROC: 0BH18EZ Insertion of Endotracheal Airway into Trachea, Via Natural or Artificial Opening Endoscopic (ICD-10-PCS; 2019-09-16)
PROC: 0B9J8ZX Drainage of Left Lower Lung Lobe, Via Natural or Artificial Opening Endoscopic, Diagnostic (ICD-10-PCS; 2019-09-19)
PROC: 0B9C8ZX Drainage of Right Upper Lung Lobe, Via Natural or Artificial Opening Endoscopic, Diagnostic (ICD-10-PCS; 2019-09-19)
PROC: 0B9G8ZX Drainage of Left Upper Lung Lobe, Via Natural or Artificial Opening Endoscopic, Diagnostic (ICD-10-PCS; 2019-09-19)
PROC: 0B9D8ZX Drainage of Right Middle Lung Lobe, Via Natural or Artificial Opening Endoscopic, Diagnostic (ICD-10-PCS; 2019-09-19)
PROC: 0B9F8ZX Drainage of Right Lower Lung Lobe, Via Natural or Artificial Opening Endoscopic, Diagnostic (ICD-10-PCS; 2019-09-19)
PROC: 02HV33Z Insertion of Infusion Device into Superior Vena Cava, Percutaneous Approach (ICD-10-PCS; principal; 2019-09-22)
PROC: B548ZZA Ultrasonography of Superior Vena Cava, Guidance (ICD-10-PCS; 2019-09-22)
PROC: 0T9B70Z Drainage of Bladder with Drainage Device, Via Natural or Artificial Opening (ICD-10-PCS; 2019-09-22)
PROC: 0W993ZZ Drainage of Right Pleural Cavity, Percutaneous Approach (ICD-10-PCS; 2019-09-27)
DX: C78.6 Secondary malignant neoplasm of retroperitoneum and peritoneum (principal); A41.9 Sepsis, unspecified organism; E43 Unspecified severe protein-calorie malnutrition; K65.9 Peritonitis, unspecified; N17.0 Acute kidney failure with tubular necrosis; G93.41 Metabolic encephalopathy; K63.1 Perforation of intestine (nontraumatic); K65.1 Peritoneal abscess; R65.21 Severe sepsis with septic shock; J96.01 Acute respiratory failure with hypoxia; D62 Acute posthemorrhagic anemia; E87.1 Hypo-osmolality and hyponatremia; C56.9 Malignant neoplasm of unspecified ovary; E87.4 Mixed disorder of acid-base balance; J90 Pleural effusion, not elsewhere classified; J81.1 Chronic pulmonary edema; J93.9 Pneumothorax, unspecified; K56.600 Partial intestinal obstruction, unspecified as to cause; K63.2 Fistula of intestine; R18.8 Other ascites; F05 Delirium due to known physiological condition; E87.6 Hypokalemia; Z68.25 Body mass index [BMI] 25.0-25.9, adult; Z88.8 Allergy status to other drugs, medicaments and biological substances; C57.00 Malignant neoplasm of unspecified fallopian tube; E78.5 Hyperlipidemia, unspecified; E83.42 Hypomagnesemia; E87.70 Fluid overload, unspecified; E89.0 Postprocedural hypothyroidism; F41.9 Anxiety disorder, unspecified; I08.1 Rheumatic disorders of both mitral and tricuspid valves; I10 Essential (primary) hypertension; I27.20 Pulmonary hypertension, unspecified; I48.0 Paroxysmal atrial fibrillation; I49.3 Ventricular premature depolarization; M19.90 Unspecified osteoarthritis, unspecified site; N83.9 Noninflammatory disorder of ovary, fallopian tube and broad ligament, unspecified; R13.10 Dysphagia, unspecified; T50.2X5A Adverse effect of carbonic-anhydrase inhibitors, benzothiadiazides and other diuretics, initial encounter; Z51.5 Encounter for palliative care; Z66 Do not resuscitate
CPT/HCPCS: 31624; 32555; 36415; 36573; 36600; 71045; 71046; 74018; 74177; 80048; 80053; 80202; 81001; 81003; 82040; 82330; 82803; 82947; 82962; 83735; 84100; 84132; 84134; 84295; 84478; 84484; 85014; 85025; 85610; 85730; 86304; 86850; 86900; 86923; 87040; 87070; 87081; 87086; 87102; 87205; 88112; 88304; 88305; 88307; 90734; 93005; 93306; 94002; 94003; 94640; 94660; C1729; G0378; J0610; J0690; J1100; J1170; J1644; J1650; J1815; J1885; J1940; J2185; J2248; J2250; J2405; J2543; J2704; J2710; J3010; J3370; J3475; J3480; J7613; J7620; P9045; P9047; Q9967; C1751; C1765; C1769; C2617; J0330; J0360; J1630; J2060; J2270; J2370; J3420; J3490; J7040; J7050; J7120; P9016; Q0163

== ENCOUNTER 2019-11-09 05:51 | Day surgery (SDC) | payer MEDICARE ==
[~2019-11-09] VITALS: Ht 156.2 cm; Wt 58.0 kg
[~2019-11-09 05:51] MED LIST changes: +ALPR0.5T7 PO; +AMOX1TAB64 PO; +OXYC-302 PO
[2019-11-09] MEDS ORDERED: LACTATED RINGERS 1,000 ML IV SCH (06:44)
[2019-11-09] MEDS ORDERED: LIDOCAINE-MPF 1%, 2ML INFIL ONE (07:00)
[2019-11-09] MEDS ORDERED: BUPIVACAINE/PF-EPI 0.25% 1:200K ONE (07:03)
[2019-11-09] MEDS ORDERED: HEPARIN 1,000 UNITS/ML, 10ML ONE (07:03)
[2019-11-09] MEDS ORDERED: MIDAZOLAM 1 MG/ML, 2ML ONE (07:15)
[2019-11-09] MEDS ORDERED: FENTANYL PF 100 MCG/2ML ONE (07:15)
[2019-11-09] MEDS ORDERED: ENOX80SY5 SQ (07:25)
[2019-11-09] MEDS ORDERED: SERT50TA PO (07:25)
[2019-11-09 07:28] LABS: ANION GAP 9 mmol/L (5-15); CALCIUM 9.1 mg/dL (8.5-10.1); CHLORIDE 108 mmol/L (98-107); CREATININE 0.87 mg/dL (0.55-1.02)
[2019-11-09 07:29] VITALS: BP 156/78
[2019-11-09] MEDS ORDERED: CEFOTETAN PMX 2GM/50ML 50 ML IV ONE (07:30)
[2019-11-09] MEDS ORDERED: NEOSTIGMINE 1 MG/ML, 10ML ONE (08:15)
[2019-11-09] MEDS ORDERED: PROPOFOL 10 MG/ML, 20ML ONE (08:15)
[2019-11-09] MEDS ORDERED: SUCCINYLCHOLINE 20 MG/ML, 10ML ONE (08:15)
[2019-11-09] MEDS ORDERED: ONDANSETRON 2MG/ML, 2ML ONE (08:15)
[2019-11-09] MEDS ORDERED: DEXAMETHASONE 4 MG/ML, 1ML ONE (08:15)
[2019-11-09] MEDS ORDERED: CEFAZOLIN 1,000 MG ONE (08:15)
[2019-11-09] MEDS ORDERED: GLYCOPYRROLATE 0.2MG/1ML, 5ML ONE (08:15)
[2019-11-09] MEDS ORDERED: ROCURONIUM 10MG/ML,5ML ONE (08:15)
[2019-11-09] MEDS ORDERED: SUGAMMADEX 200 MG/2 ML IVPush ONE (08:16)
[2019-11-09 08:24] LABS: INTERNATIONAL NORMALIZED RATIO 1.23 (0.93-1.1); PROTHROMBIN TIME 12.8 Seconds (9.6-11.5)
[2019-11-09] MEDS ORDERED: OXYcodone 5 MG/5 ML ORAL.SOL UDC PO PRN (08:30)
[2019-11-09] MEDS ORDERED: hydrALAzine 20 MG/ML, 1ML IV PRN (08:30)
[2019-11-09] MEDS ORDERED: HYDROmorphone 2 MG/ML, 1ML IVPush PRN (08:30)
[2019-11-09] MEDS ORDERED: FENTANYL PF 100 MCG/2ML IV PRN (08:30)
[2019-11-09] MEDS ORDERED: PROMETHAZINE 25 MG/ML, 1ML IV PRN (08:30)
[2019-11-09] MEDS ORDERED: HALOPERIDOL 5 MG/ML IV PRN (08:30)
[2019-11-09] MEDS ORDERED: ALBUTEROL SULFATE 2.5 MG/3 ML NPPB PRN (08:30)
[2019-11-09] MEDS ORDERED: LABETALOL 5MG/ML, 20ML IV PRN (08:30)
[2019-11-09] MEDS ORDERED: VISIPAQUE 270 MG/ML, 50ML BOTTLE ONE (08:40)
[2019-11-09] MEDS ORDERED: ACETAMINOPHEN 650 MG/20.3 ML UDC PO PRN (09:00)
[2019-11-09] MEDS ORDERED: ACETAMINOPHEN 650 MG/20.3 ML UDC ONE (09:01)
== END 2019-11-09 10:40 | disposition home or self-care (01) ==
LOC: OUT 05:51
PROVIDERS: ATTEND Specialist
DX: C56.9 Malignant neoplasm of unspecified ovary (principal); C57.01 Malignant neoplasm of right fallopian tube; C77.3 Secondary and unspecified malignant neoplasm of axilla and upper limb lymph nodes; E89.0 Postprocedural hypothyroidism; F41.9 Anxiety disorder, unspecified; E78.5 Hyperlipidemia, unspecified; Z79.890 Hormone replacement therapy; Z79.01 Long term (current) use of anticoagulants; Z79.899 Other long term (current) drug therapy; Z87.891 Personal history of nicotine dependence; Z86.711 Personal history of pulmonary embolism; Z88.8 Allergy status to other drugs, medicaments and biological substances; Z99.81 Dependence on supplemental oxygen
CPT/HCPCS: 36415; 36571; 71045; 76937; 77001; 80048; 85610; 85730; C1788; J0690; J1100; J1644; J2250; J2405; J2704; J3010; J3490; J7120; Q9966; J2710; J0330